=== PATIENT | female | born 1950 | race Caucasian/White ===

== ENCOUNTER 2024-08-13 12:38 | Emergency (ER) | payer MEDICARE, SELFPAY ==
[2024-08-13 12:46] VITALS: BP 141/96; PULSE 80; RESP 19; TEMP 36.7; O2SAT 98; BMI 19.2
--- NOTE | 2024-08-13 13:00 | ED.FALL ---
HPI - Fall <Tawny Huber PA-C - Last Filed: 08/13/24 19:06> General Chief Complaint: Fall Stated Complaint: Head and neck pain Time Seen by Provider: 08/13/24 12:59 Source: patient Mode of arrival: Ambulatory History of Present Illness HPI Narrative: Ms. Montgomery is a pleasant 74-year-old female with a past medical history of myotonic dystrophy, hypercholesterolemia who presents to the emergency department for bilateral headache and neck pain x1 week. Patient reports due to her myotonic dystrophy she has frequent falls. States that she did not have a fall with head trauma that caused her headache but since she does trip and fall frequently she is worried headache could be related to a fall. States that she has a dull pressure-like headache on both sides of the top of her scalp in addition to both sides of the back of her neck which has been coming and going over the last 1 week. Reports that she occasionally takes 1-2 pills of Tylenol a day which has not resolved headache. She does not like to take ibuprofen because it causes nausea. She has not interested an opioid pain medication either. She denies any associated symptoms such as lightheadedness, dizziness, visual disturbance, hearing disturbance, weakness, numbness, tingling, chest pain, shortness of breath, fevers, chills, nausea, vomiting, loss of consciousness. States that she had neck imaging done prior which showed her neck was ?messed up?. Reports about 3-4 months ago she had a fall resulting in left ankle and left arm fracture which are both healing well. She denies any pain elsewhere on her body. The patient's cousin and son are with her and they contribute to the history. Related Data Previous Rx's Medication Instructions Recorded lidocaine 5 % topical patch 1 patch topical DAILY #15 ea 08/13/24 (Lidoderm) methocarbamol 500 mg tablet 500 mg PO TID PRN muscle spasm #14 08/13/24 tabs naproxen 375 mg tablet 375 mg PO BID PRN pain #10 tabs 08/13/24 Allergies Allergy/AdvReac Type Severity Reaction Status Date / Time ibuprofen AdvReac Mild Nausea Verified 08/13/24 12:54 Review of Systems <Tawny Huber PA-C - Last Filed: 08/13/24 19:06> Review of Systems ROS Unobtainable: All systems reviewed & are unremarkable except as noted in HPI and below Patient History <Tawny Huber PA-C - Last Filed: 08/13/24 19:06> Social History Smoking Status: Former smoker Smoking Status: Former smoker Exam <Tawny Huber PA-C - Last Filed: 08/13/24 19:06> Narrative Exam Narrative: GENERAL: 74 year old patient appears stated age. Frail patient, in no acute distress, sitting in chair. HEAD: Atraumatic. Normocephalic. EYES: PERRL. Extraocular motions intact. No scleral icterus. No injection or drainage. ENT: No hemotympanum. Nose without bleeding, purulent drainage. Throat without erythema, tonsillar hypertrophy or exudate. Airway patent. NECK: Trachea midline. Cervical ROM intact. No midline tenderness. Subjective pain with range of motion. CARDIOVASCULAR: Regular rate and rhythm. RESPIRATORY: ?Nonlabored respirations. ?Speaking in clear, full sentences. ?Clear to auscultation. GASTROINTESTINAL: Abdomen soft, non-tender, nondistended. EXTREMITIES: No edema or joint tenderness. Left upper arm prior fracture site/surgical incision scar healed well. BACK: Nontender without deformity or crepitance. No flank tenderness. NEURO: AOx3. ?Clear speech. No facial asymmetry. Ambulates with walker. SKIN: No rash or erythema of visible areas Initial Vital Signs Initial Vital Signs: Vital Signs Temperature 98.0 F 08/13/24 12:46 Pulse Rate 80 08/13/24 12:46 Respiratory Rate 19 08/13/24 12:46 Blood Pressure 141/96 H 08/13/24 12:46 Pulse Oximetry 98 08/13/24 12:46 Oxygen Delivery Method Room Air 08/13/24 12:46 <Fe Mir MD - Last Filed: 09/21/24 18:07> Initial Vital Signs Initial Vital Signs: Vital Signs Temperature 98.0 F 08/13/24 12:46 Pulse Rate 80 08/13/24 12:46 Respiratory Rate 19 08/13/24 12:46 Blood Pressure 141/96 H 08/13/24 12:46 Pulse Oximetry 98 08/13/24 12:46 Oxygen Delivery Method Room Air 08/13/24 12:46 Scores <Tawny Huber PA-C - Last Filed: 08/13/24 19:06> [place] CT Head Rule Age <16 years old: No Patient on blood thinners: No Seizure after injury: No Exclusion: Patient NOT Excluded, Proceed to next steps GCS < 15 at 2 hr post trauma: No Suspected open or depressed skull fracture: No Any sign of basilar skull fracture (hemotympanum, raccoon eyes, Velez's sign, CSF rowena-/rhinorrhea): No Two or more episodes of vomiting: No Age greater or equal to 65 years: Yes Retrograde amnesia to the event greater or equal to 30 min: No Dangerous Mechanism (pedestrian vs. mv, occupant ejected from mv, fall from >3 ft or > 5 stairs): No Recommendation: Consider CT. The [place] Head CT Rule cannot rule out need for Imaging. <Fe Mir MD - Last Filed: 09/21/24 18:07> Russian CT Head Rule Exclusion: Patient NOT Excluded, Proceed to next steps Recommendation: Consider CT. The [place] Head CT Rule cannot rule out need for Imaging. Course <Tawny Huber PA-C - Last Filed: 08/13/24 19:06> Orders Ordered: Discontinued Medications Acetaminophen (Acetaminophen 325 Mg Tablet) 975 mg PO NOW ONE Stop: 08/13/24 13:14 Last Admin: 08/13/24 13:25 Dose: 975 mg Documented By: ASTER Diazepam (Diazepam 2 Mg Tablet) 2 mg PO NOW ONE Stop: 08/13/24 13:14 Last Admin: 08/13/24 13:25 Dose: 2 mg Documented By: ASTER Ketorolac Tromethamine (Ketorolac 30 Mg/Ml Vial) 15 mg IM NOW ONE Stop: 08/13/24 14:46 Last Admin: 08/13/24 14:55 Dose: 15 mg Documented By: ASTER Lidocaine (Lidocaine 5% Patch) 1 each TOP NOW ONE Stop: 08/13/24 13:14 Last Admin: 08/13/24 13:26 Dose: 1 each Documented By: ASTER Vital Signs Vital signs: Vital Signs - 8 hr 08/13/24 12:46 08/13/24 15:22 Temperature 98.0 F Pulse Rate 80 78 Respiratory Rate 19 18 Blood Pressure 141/96 H 142/82 H Pulse Oximetry 98 98 Oxygen Delivery Method Room Air Room Air <Fe Mir MD - Last Filed: 09/21/24 18:07> Orders Ordered: Discontinued Medications Acetaminophen (Acetaminophen 325 Mg Tablet) 975 mg PO NOW ONE Stop: 08/13/24 13:14 Last Admin: 08/13/24 13:25 Dose: 975 mg Documented By: ASTER Diazepam (Diazepam 2 Mg Tablet) 2 mg PO NOW ONE Stop: 08/13/24 13:14 Last Admin: 08/13/24 13:25 Dose: 2 mg Documented By: ASTER Ketorolac Tromethamine (Ketorolac 30 Mg/Ml Vial) 15 mg IM NOW ONE Stop: 08/13/24 14:46 Last Admin: 08/13/24 14:55 Dose: 15 mg Documented By: ASTER Lidocaine (Lidocaine 5% Patch) 1 each TOP NOW ONE Stop: 08/13/24 13:14 Last Admin: 08/13/24 13:26 Dose: 1 each Documented By: ASTER Vital Signs Vital signs: Vital Signs - 8 hr 08/13/24 12:46 08/13/24 15:22 Temperature 98.0 F Pulse Rate 80 78 Respiratory Rate 19 18 Blood Pressure 141/96 H 142/82 H Pulse Oximetry 98 98 Oxygen Delivery Method Room Air Room Air MDM - Fall <Tawny Huber PA-C - Last Filed: 08/13/24 19:06> Imaging Data CT scan - head: Radiologist's Impression: PROCEDURE: CT HEAD/BRAIN WO CON INDICATIONS: BL FOX nck pain x 1 week; hx of freq falls TECHNIQUE: Noncontrast 4.5 mm thick angled axial sections acquired from the foramen magnum to the vertex, with coronal and sagittal reformats. For radiation dose reduction, the following was used: automated exposure control, adjustment of mA and/or kV according to patient size. COMPARISON: None. FINDINGS: Image quality: Diagnostic. CSF spaces: Basal cisterns are patent. No extra-axial fluid collections. The ventricles are symmetric in size and shape. Brain: No intracranial bleeds or masses. There is cerebral volume loss for age, with resultant ventricular and sulcal prominence. There are periventricular and deep white matter chronic small vessel ischemic changes. There is intracranial internal carotid artery atherosclerosis. Skull and face: Calvarium and visualized facial bones appear intact, without suspicious lesions. Sinuses: Visualized sinuses and mastoids are clear. IMPRESSION: No acute intracranial pathology. CT - cervical spine: Radiologist's Impression: PROCEDURE: CT CERVICAL SPINE WO CON INDICATIONS: BL FOX neck pain x 1 week; hx freq falls TECHNIQUE: Noncontrast 3 mm thick sections acquired from the skull base to the T4 level. Sagittal and coronal reformats were then constructed. For radiation dose reduction, the following was used: automated exposure control, adjustment of mA and/or kV according to patient size. COMPARISON: None. FINDINGS: Image quality: Excellent. Bones: No fractures or dislocations. There is dextrocurvature of the cervical spine which may be positional. Minimal degenerative changes are present. Visualized superior ribs are intact. Soft tissues: Prevertebral soft tissues are normal in thickness. No paravertebral hematomas. No apical pneumothoraces. IMPRESSION: No displaced fracture or traumatic subluxation. MDM Narrative Medical decision making narrative: 74-year-old female with a past medical history of myotonic dystrophy, hypercholesterolemia who presents to the emergency department for bilateral headache and neck pain x1 week. Cousin and son contribute to history. No records available for review. On exam patient is in no acute distress, nontoxic appearing, vital signs appropriate. Patient describes bilateral head and neck pain for the last week with a history of frequent falls but no specific fall with head trauma causing the symptoms. No focal neurologic deficits discovered on exam within the limits of patient's myotonic dystrophy. Due to patient age, [address], after shared decision-making with the patient she would like to proceed with imaging of the head and neck and I am agreeable. She is very hesitant to take Tylenol as she reports she usually takes 1 pill at home which does not help however we discussed that this is a very low dose. She did not take any today. We will proceed with Tylenol and a low dose of Valium to help with possible cervical spasms in addition to a topical lidocaine patch. Patient feeling better after ED treatment. Head CT reveals no acute intracranial pathology, report was printed and discussed with the patient and her family including all chronic findings. Cervical spine CT reveals no displaced fracture or traumatic subluxation, there is dextrocurvature of the cervical spine and minimal degenerative changes present. Suspect patient's symptoms are related to cervicogenic headache. She is feeling better after ED treatment. We will also treat with a dose of Toradol. Patient was prescribed naproxen and Lidoderm patches in addition to methocarbamol if needed for cervical muscle spasms, discussed risks of muscle relaxers with the patient and family. Advised patient to follow up early next week with primary care provider, she was provided with a card to establish PCP at [facility]. We discussed strict ER return precautions. Patient verbalized understanding of all information, prescription sent to pharmacy of choice, she is stable for discharge home. Discharge Plan Departure Patient Disposition: Home Clinical Impression: Headache, cervicogenic Instructions: DI for Headache Activity Restrictions/Additional Instructions: Today you were evaluated for headache and neck pain. The findings on your physical exam and your imaging was overall reassuring. We obtained a head CT scan and a cervical spine CT scan. The imaging of your neck revealed some minimal degenerative changes in addition to some abnormal curvature of the neck. I suspect your pain may be related to these chronic neck changes. I have prescribed you an anti-inflammatory pain medication called naproxen to take if needed in addition to a muscle relaxer called methocarbamol. You may also apply lidocaine patch directly to the area on the back of the neck. It is safe to take Tylenol as well. Please do not drink alcohol, operate heavy machinery or drive a car while taking muscle relaxers as this may make you drowsy. You may also take Acetaminophen 650 mg every 4-6 hours for pain or 1000 mg every 8 hours. Do not exceed 3000 mg of Tylenol a day as this can cause liver damage. Do not drink alcohol with either of these medications. Please follow up with your primary care doctor within the next 2-3 days for ER follow-up. (If you do not have a PCP you can call [phone]. ?to schedule an appointment with an [facility] Primary Care Provider) IF YOU DEVELOP ANY NEW OR WORSENING SYMPTOMS, RETURN TO THE ER! Please read the attached instructions, they highlight more specific treatments and interventions for you at home. Thank you for letting me participate in your care, Tawny Huber PA-C Prescriptions: New naproxen 375 mg tablet 375 mg PO BID PRN (Reason: pain) Qty: 10 0RF Rx Instructions: take with food. lidocaine [Lidoderm] 5 % adhesive patch,medicated 1 patch topical DAILY Qty: 15 0RF Rx Instructions: leave on most painful area for up to 12 hrs methocarbamol 500 mg tablet 500 mg PO TID PRN (Reason: muscle spasm) Qty: 14 0RF Stand Alone Forms: Patient Portal/API/Survey
--- NOTE | 2024-08-13 13:13 | DI.CT.S_ITS ---
PROCEDURE: CT HEAD/BRAIN WO CON INDICATIONS: BL FOX nck pain x 1 week; hx of freq falls TECHNIQUE: Noncontrast 4.5 mm thick angled axial sections acquired from the foramen magnum to the vertex, with coronal and sagittal reformats. For radiation dose reduction, the following was used: automated exposure control, adjustment of mA and/or kV according to patient size. COMPARISON: None. FINDINGS: Image quality: Diagnostic. CSF spaces: Basal cisterns are patent. No extra-axial fluid collections. The ventricles are symmetric in size and shape. Brain: No intracranial bleeds or masses. There is cerebral volume loss for age, with resultant ventricular and sulcal prominence. There are periventricular and deep white matter chronic small vessel ischemic changes. There is intracranial internal carotid artery atherosclerosis. Skull and face: Calvarium and visualized facial bones appear intact, without suspicious lesions. Sinuses: Visualized sinuses and mastoids are clear. IMPRESSION: No acute intracranial pathology. Dictated by: Carly Estevez M.D. on 08/13/2024 at 13:11 Approved by: Carly Estevez M.D. on 08/13/2024 at 13:13
--- NOTE | 2024-08-13 13:13 | DI.CT.S_ITS ---
PROCEDURE: CT CERVICAL SPINE WO CON INDICATIONS: BL FOX neck pain x 1 week; hx freq falls TECHNIQUE: Noncontrast 3 mm thick sections acquired from the skull base to the T4 level. Sagittal and coronal reformats were then constructed. For radiation dose reduction, the following was used: automated exposure control, adjustment of mA and/or kV according to patient size. COMPARISON: None. FINDINGS: Image quality: Excellent. Bones: No fractures or dislocations. There is dextrocurvature of the cervical spine which may be positional. Minimal degenerative changes are present. Visualized superior ribs are intact. Soft tissues: Prevertebral soft tissues are normal in thickness. No paravertebral hematomas. No apical pneumothoraces. IMPRESSION: No displaced fracture or traumatic subluxation. Dictated by: Carly Estevez M.D. on 08/13/2024 at 13:13 Approved by: Carly Estevez M.D. on 08/13/2024 at 13:15
[2024-08-13] MEDS: diazePAM 2 MG TABLET PO (13:25)
[2024-08-13] MEDS: ACETAMINOPHEN 325 MG TABLET 975 MG PO (13:25)
[2024-08-13] MEDS: LIDOCAINE 5% PATCH 1 EACH TOP (13:26)
[2024-08-13] MEDS: KETOROLAC 30 MG/ML VIAL 15 MG IM (14:55)
[2024-08-13 15:22] VITALS: BP 142/82; PULSE 78; RESP 18; O2SAT 98
== END 2024-08-13 15:10 | disposition home or self-care (01) ==
PROVIDERS: Emergency Provider Physician Assistant
DX: G44.86 Cervicogenic headache (principal); M54.2 Cervicalgia; R29.6 Repeated falls; G71.11 Myotonic muscular dystrophy
CPT/HCPCS: 70450; 72125; 96372; 99283; 99284; J1885

== ENCOUNTER 2024-12-30 17:50 | Observation (INO) | payer MEDICARE, SELFPAY ==
[2024-12-30] VITALS (13 sets, daily range): BP systolic 136–178; BP diastolic 66–104; PULSE 77–92; RESP 16–40; TEMP 36.9–37.1; O2SAT 88–97; BMI 21.3
--- NOTE | 2024-12-30 18:57 | DI.RAD.S_ITS ---
PROCEDURE: XR CHEST 1V INDICATIONS: chest pain TECHNIQUE: One view of the chest was acquired. COMPARISON: None. FINDINGS: Surgical changes and devices: None. Lungs and pleura: Elevated right hemidiaphragm, which may be chronic. No pleural effusions or pneumothorax. Mediastinum: Mediastinal contours appear normal. Heart size is normal. Bones and chest wall: Left proximal humeral fracture fixation hardware is present. No suspicious bony lesions. Overlying soft tissues appear unremarkable. IMPRESSION: Elevated right hemidiaphragm. No acute cardiopulmonary abnormality is seen. Approved by: Nirmal Fernández M.D. on 12/30/2024 at 19:45
--- NOTE | 2024-12-30 18:57 | EKG_ITS ---
[facility] [address] [place] [address] Test Date: 2024-12-30 Pat Name: Mariel Montgomery Department: [facility] Room: Gender: Female Senior Data Warehouse Architect: MIK : [id number] Requested By: Order Number: [id number] Reading MD: Ephraim Mills Measurements Intervals [place] Rate: 80 P: 12 SC: 212 QRS: -33 QRSD: 116 T: 94 QT: 316 QTc: 364 Interpretive Statements Sinus rhythm with 1st degree AV block Left axis deviation Left ventricular hypertrophy with QRS widening and repolarization abnormality ( R in aVL , Wu product ) Nonspecific ST abnormality Electronically Signed On 12-31-2024 8:43:39 PDT by Ephraim Mills
[2024-12-30] MEDS: ALBUTEROL 2.5 MG/3 ML NEB (ADULT) INH (19:50)
[2024-12-30 20:27] LABS: Influenza A - CEPHEID Flu A NEGATIVE (NEGATIVE); Influenza B - CEPHEID Flu B NEGATIVE (NEGATIVE); Respiratory Syncytial Virus Negative (Negative)
[2024-12-30 20:30] LABS: Add Manual Diff / Slide Review NO; Basophils Absolute Auto 0 /uL (0-100); Basophils Percent Auto 0.3 % (0-2); Eosinophils Absolute Auto 0 /uL (0-450); Eosinophils Percent Auto 0.2 % (2-4); Hematocrit 41.7 % (36-46); Hemoglobin 14.1 g/dL (12.0-16.0); Lymphocytes Absolute Auto 2100 /uL (1100-4500); Lymphocytes Percent Auto 22.2 % (25-40); Mean Corpuscular HGB Conc 33.8 % (30-36); Mean Corpuscular Hemoglobin 33.6 PG (26-34); Mean Corpuscular Volume 99.3 fL (80-100); Monocytes Absolute Auto 500 /uL (0-900); Neutrophils Absolute Auto 7000 /uL (1500-7000); Neutrophils Percent Auto 72.3 % (50-75); Platelet Count 252 X10^3/uL (150-400); Red Cell Distribution Width 14.6 % (11.6-14.8); White Blood Cell Count 9.6 X10^3/uL (4.5-11.0)
[2024-12-30 20:33] LABS: COVID-19 CEPHEID 4-PLEX PCR Negative (Negative)
[2024-12-30 20:43] LABS: Alanine Aminotransferase 88 IU/L (<35); Albumin 4.3 g/dL (3.5-5.0); Albumin Globulin Ratio 1.4 (1.0-2.8); Alkaline Phosphatase 310 U/L (38-126); Aspartate Aminotransferase 85 IU/L (14-36); BUN Creatinine Ratio 15.6 (6-22); Bilirubin Total 0.6 mg/dL (0.2-1.3); Blood Urea Nitrogen 10 mg/dL (7-17); Calcium 9.7 mg/dL (8.4-10.2); Carbon Dioxide 29 mmol/L (22-32); Chloride 97 mmol/L (98-107); Creatine Kinase 63 U/L (30-135); Estimated Glomerular Filt Rate > 60 mL/min (>60); Globulin 3.1 g/dL (1.7-4.1); Glucose 112 mg/dL (70-99); HEMOLYSIS 32 (0-50); Lipase 16 U/L (23-300); Potassium 3.2 mmol/L (3.4-5.1); Sodium 133 mmol/L (137-145); Total Protein 7.4 g/dL (6.3-8.2)
[2024-12-30 20:54] LABS: Troponin I < 0.012 ng/mL (0.01-0.034)
--- NOTE | 2024-12-30 21:07 | ED.URI ---
HPI - URI/Sore Throat General Chief Complaint: Upper Respiratory Symptoms Stated Complaint: sob, pcp ref, cold x 3 days, weakness Time Seen by Provider: 12/30/24 18:57 Source: patient Mode of arrival: Ambulatory History of Present Illness HPI Narrative: 74-year-old female with history of muscular dystrophy, not usually on oxygen, has 2 days duration of cough with increasing shortness of breath. Denies chest pain. Has some generalized weakness, no focal weakness or numbness. Denies abdominal discomfort. No frequency or painful urination. No black or red stools or loose stools. She had recent dental procedure, is taking amoxicillin, has 5 more days of this course. Related Data Home Medications ?Medication ?Instructions ?Recorded ?Confirmed amoxicillin 500 mg capsule 500 mg PO 3XD 12/30/24 12/30/24 chlorhexidine gluconate 0.12 % 15 ml PO BID 12/30/24 12/30/24 mouthwash hydrocodone 5 mg-acetaminophen 325 1 tab PO Q6H PRN pain 12/30/24 12/30/24 mg tablet Previous Rx's ?Medication ?Instructions ?Recorded lidocaine 5 % topical patch 1 patch topical DAILY #15 ea 08/13/24 (Lidoderm) naproxen 375 mg tablet 375 mg PO BID PRN pain #10 tabs 08/13/24 pravastatin 40 mg tablet 40 mg PO ONCE PM #30 tabs 10/31/24 Allergies Allergy/AdvReac Type Severity Reaction Status Date / Time ibuprofen AdvReac Mild Nausea Verified 12/30/24 17:22 Patient History Social History household members: children Smoking Status: Former smoker Smoking Status: Former smoker Exam Narrative Exam Narrative: GENERAL: Well-developed patient, in mild distress. HEAD: Atraumatic. Normocephalic. EYES: Pupils equal round and reactive. Extraocular motions intact. No scleral icterus. No injection or drainage. ENT: Nose without bleeding, purulent drainage. Throat without erythema, tonsillar hypertrophy or exudate. Airway patent. NECK: Trachea midline. Non tender CARDIOVASCULAR: Regular rate and rhythm without murmurs, gallops, or rubs. RESPIRATORY: Crackles bibasilar, with some end expiratory wheezes after DuoNeb by RT. on nasal cannula oxygen. No retractions. Speaks in just short of full sentences. GASTROINTESTINAL: Abdomen soft, non-tender, nondistended. EXTREMITIES: No edema or joint tenderness. BACK: Nontender without deformity or crepitance. No flank tenderness. NEURO: AOx3. Motor functions grossly nonfocal SKIN: No rash or erythema of visible areas Initial Vital Signs Initial Vital Signs: Vital Signs Temperature 98.7 F 12/30/24 18:29 Pulse Rate 92 H 12/30/24 18:29 Respiratory Rate 22 12/30/24 18:29 Blood Pressure 143/68 H 12/30/24 18:29 Pulse Oximetry 88 L 12/30/24 18:29 Oxygen Delivery Method Room Air 12/30/24 18:29 Course Orders Ordered: ED Orders 12/30/24 18:57 XR chest 1V Stat EKG-12 Lead Stat 12/30/24 19:37 Covid-19 + FLU A/B + RSV - PCR Stat 12/30/24 20:15 Complete Blood Count AUTO DIFF Stat Comprehensive Metabolic Panel Stat Lipase Stat Troponin & CK Cardiac Panel Stat 12/30/24 21:20 CT angio chest PE protocol Stat 12/30/24 21:46 Lactate (Lactic Acid) Stat 12/30/24 21:56 BNP [NT-proBNP (BNP-Adult 18+)] Stat Troponin I Stat UA Complete [Urinalysis and Microscopic] Stat 12/31/24 01:23 Blood Culture Stat 01/01/25 06:00 Complete Blood Count AUTO DIFF DAILY Comprehensive Metabolic Panel DAILY Acetaminophen (Acetaminophen 325 Mg Tablet) 650 mg PO Q6H PRN PRN Reason: Fever/Mild Pain (1-3) Albuterol/Ipratropium (Albuterol/Ipratropium 3 Ml Ampul) 3 ml INH RTQ4HR PRN PRN Reason: Shortness Of Breath Heparin Sodium (Porcine) (Heparin 5,000 Unit/Ml Vial) 5,000 unit SUBCUT BID VIVIANE Sodium Chloride (Normal Saline 0.9%) 1,000 mls @ 100 mls/hr IV CONT VIVIANE Last Admin: 12/31/24 02:48 Dose: 100 mls/hr Documented By: EF Piperacillin Sod/Tazobactam (Sod 3.375 gm/ Sodium Chloride) 100 mls @ 25 mls/hr IV Q8H VIVIANE Methylprednisolone (Methylprednisolone 125 Mg/2 Ml Vial) 40 mg IV Q8H VIVIANE Naloxone HCl (Naloxone 0.4 Mg/Ml Vial) 0.2 mg IV Q2MIN PRN PRN Reason: Opiate Reversal Ondansetron HCl (Ondansetron 4 Mg/2 Ml Inj) 4 mg IV Q8HR PRN PRN Reason: Nausea And Vomiting Pantoprazole Sodium (Pantoprazole Dr 20 Mg Tablet) 40 mg PO 0600 VIVIANE Discontinued Medications Albuterol (Albuterol 2.5 Mg/3 Ml Neb (Adult)) 2.5 mg INH NOW ONE Stop: 12/30/24 19:48 Last Admin: 12/30/24 19:50 Dose: 2.5 mg Documented By: MR Albuterol/Ipratropium (Albuterol/Ipratropium 3 Ml Ampul) 3 ml INH NOW ONE Stop: 12/30/24 21:22 Last Admin: 12/30/24 21:28 Dose: 3 ml Documented By: RAFIC Aspirin (Aspirin 81 Mg Chew Tab) 324 mg PO NOW ONE Stop: 12/30/24 18:58 Last Admin: 12/30/24 19:29 Dose: Not Given Documented By: RLC Doxycycline Hyclate (Doxycycline Hyclate 100 Mg Tablet) 100 mg PO NOW ONE Stop: 12/31/24 00:59 Last Admin: 12/31/24 03:17 Dose: 100 mg Documented By: EF Piperacillin Sod/Tazobactam (Sod 4.5 gm/ Sodium Chloride) 100 mls @ 200 mls/hr IV NOW ONE Stop: 12/31/24 00:59 Last Admin: 12/31/24 03:05 Dose: 200 mls/hr Documented By: EF Methylprednisolone (Methylprednisolone 125 Mg/2 Ml Vial) 125 mg IV NOW ONE Stop: 12/30/24 21:22 Last Admin: 12/30/24 21:27 Dose: 125 mg Documented By: RLC Potassium Chloride (Potassium Chloride 20 Meq/15 Ml Udc) 40 meq PO NOW ONE Stop: 12/30/24 21:09 Last Admin: 12/30/24 21:20 Dose: 40 meq Documented By: RLC Vital Signs Vital signs: Vital Signs - 8 hr 12/30/24 19:30 12/30/24 19:53 12/30/24 20:00 Pulse Rate 80 77 80 Respiratory Rate 23 16 35 H Blood Pressure 163/77 H Pulse Oximetry 97 97 94 Oxygen Delivery Method Room Air Oxygen Flow Rate 12/30/24 20:00 12/30/24 20:30 12/30/24 20:30 Pulse Rate 83 Respiratory Rate 31 H Blood Pressure 157/104 H 156/77 H Pulse Oximetry 91 Oxygen Delivery Method Oxygen Flow Rate 12/30/24 21:04 12/30/24 21:06 12/30/24 22:00 Pulse Rate 82 81 80 Respiratory Rate 19 32 H 28 H Blood Pressure Pulse Oximetry 92 91 96 Oxygen Delivery Method Nasal Cannula Oxygen Flow Rate 2 12/30/24 22:06 12/30/24 22:06 12/30/24 22:31 Pulse Rate 82 88 Respiratory Rate 31 H 33 H Blood Pressure 136/66 Pulse Oximetry 95 92 Oxygen Delivery Method Oxygen Flow Rate 12/30/24 23:00 12/30/24 23:00 12/30/24 23:30 Pulse Rate 81 78 Respiratory Rate 36 H 31 H Blood Pressure 145/94 H Pulse Oximetry 89 L 92 Oxygen Delivery Method Room Air Nasal Cannula Oxygen Flow Rate 2 12/30/24 23:30 12/31/24 00:00 12/31/24 00:30 Pulse Rate 76 77 Respiratory Rate 36 H 32 H Blood Pressure 178/83 H Pulse Oximetry 92 92 Oxygen Delivery Method Oxygen Flow Rate 12/31/24 00:32 12/31/24 00:32 12/31/24 01:10 Pulse Rate 75 Respiratory Rate 32 H Blood Pressure 145/75 H Pulse Oximetry 92 93 Oxygen Delivery Method Nasal Cannula Nasal Cannula Oxygen Flow Rate 2 2 MDM - URI/Sore Throat Lab Data Lab results narrative: White blood cell count 9600, hemoglobin 14.1, platelets adequate. Glucose 112. Renal function normal. Sodium 133 low, potassium 3.2 low. Alkaline phosphatase, transaminases mildly elevated, normal T bili. Lipase normal. Lactate normal. COVID flu RSV negative. UA slight contamination not obviously infected. 12/30/24 20:15 12/30/24 20:15 Labs: Lab Results 12/30/24 12/30/24 12/30/24 Range/Units 19:37 20:15 21:46 WBC 9.6 (4.5-11.0) X10^3/uL RBC 4.20 (4.0-5.2) X10^6/uL Hgb 14.1 (12.0-16.0) g/dL Hct 41.7 (36-46) % MCV 99.3 (80-100) fL MCH 33.6 (26-34) PG MCHC 33.8 (30-36) % RDW 14.6 (11.6-14.8) % Plt Count 252 (150-400) X10^3/uL Neut % (Auto) 72.3 (50-75) % Lymph % (Auto) 22.2 L (25-40) % [place] % (Auto) 5.0 (3-14) % Eos % (Auto) 0.2 L (2-4) % Baso % (Auto) 0.3 (0-2) % Neut # (Auto) 7000 (0485-3134) /uL Lymph # (Auto) 2100 (5261-8045) /uL [place] # (Auto) 500 (0-900) /uL Eos # (Auto) 0 (0-450) /uL Baso # (Auto) 0 (0-100) /uL Sodium 133 L (137-145) mmol/L Potassium 3.2 L (3.4-5.1) mmol/L Chloride 97 L (98-107) mmol/L Carbon Dioxide 29 (22-32) mmol/L BUN 10 (7-17) mg/dL Creatinine 0.64 (0.52-1.04) mg/dL Estimated GFR > 60 (>60) mL/min BUN/Creatinine Ratio 15.6 (6-22) Glucose 112 H (70-99) mg/dL Lactate 1.0 (0.7-2.1) mmol/L Calcium 9.7 (8.4-10.2) mg/dL Total Bilirubin 0.6 (0.2-1.3) mg/dL AST 85 H (14-36) IU/L ALT 88 H (<35) IU/L Alkaline Phosphatase 310 H (38-126) U/L Total Creatine Kinase 63 (30-135) U/L Troponin I < 0.012 (0.01-0.034) ng/mL NT-Pro-B Natriuret Pep (<125) pg/mL Total Protein 7.4 (6.3-8.2) g/dL Albumin 4.3 (3.5-5.0) g/dL Globulin 3.1 (1.7-4.1) g/dL Albumin/Globulin Ratio 1.4 (1.0-2.8) Lipase 16 L (23-300) U/L Urine Color Urine Appearance Urine pH (4.5-8.0) Ur Specific [place] (1.000-1.035) Urine Protein (Negative) Urine Glucose (UA) (Negative) g/dL Urine Ketones (NEGATIVE) Urine Occult Blood (Negative) Urine Nitrate (Negative) Urine Bilirubin (NEGATIVE) Urine Urobilinogen (0.2) E.U./dL Ur Leukocyte Esterase (NEGATIVE) Urine RBC (0-5/HPF) Urine WBC (0-5/HPF) Ur Squamous Epith Cells (0-5/HPF) Urine Bacteria (None) Ur Culture Indicated? Vol Urine Centrifuged SARS-CoV-2 (PCR) Negative (Negative) Influenza A (RT-PCR) Flu a negative (NEGATIVE) Influenza B (RT-PCR) Flu b negative (NEGATIVE) RSV (PCR) Negative (Negative) 12/30/24 Range/Units 21:56 WBC (4.5-11.0) X10^3/uL RBC (4.0-5.2) X10^6/uL Hgb (12.0-16.0) g/dL Hct (36-46) % MCV (80-100) fL MCH (26-34) PG MCHC (30-36) % RDW (11.6-14.8) % Plt Count (150-400) X10^3/uL Neut % (Auto) (50-75) % Lymph % (Auto) (25-40) % [place] % (Auto) (3-14) % Eos % (Auto) (2-4) % Baso % (Auto) (0-2) % Neut # (Auto) (2908-9946) /uL Lymph # (Auto) (4233-5990) /uL [place] # (Auto) (0-900) /uL Eos # (Auto) (0-450) /uL Baso # (Auto) (0-100) /uL Sodium (137-145) mmol/L Potassium (3.4-5.1) mmol/L Chloride (98-107) mmol/L Carbon Dioxide (22-32) mmol/L BUN (7-17) mg/dL Creatinine (0.52-1.04) mg/dL Estimated GFR (>60) mL/min BUN/Creatinine Ratio (6-22) Glucose (70-99) mg/dL Lactate (0.7-2.1) mmol/L Calcium (8.4-10.2) mg/dL Total Bilirubin (0.2-1.3) mg/dL AST (14-36) IU/L ALT (<35) IU/L Alkaline Phosphatase (38-126) U/L Total Creatine Kinase (30-135) U/L Troponin I < 0.012 (0.01-0.034) ng/mL NT-Pro-B Natriuret Pep 121 (<125) pg/mL Total Protein (6.3-8.2) g/dL Albumin (3.5-5.0) g/dL Globulin (1.7-4.1) g/dL Albumin/Globulin Ratio (1.0-2.8) Lipase (23-300) U/L Urine Color Yellow Urine Appearance Clear Urine pH 6.0 (4.5-8.0) Ur Specific [place] 1.015 (1.000-1.035) Urine Protein Negative (Negative) Urine Glucose (UA) Negative (Negative) g/dL Urine Ketones Negative (NEGATIVE) Urine Occult Blood Negative (Negative) Urine Nitrate Negative (Negative) Urine Bilirubin Negative (NEGATIVE) Urine Urobilinogen 0.2 (0.2) E.U./dL Ur Leukocyte Esterase Negative (NEGATIVE) Urine RBC None seen (0-5/HPF) Urine WBC 0-1/hpf (0-5/HPF) Ur Squamous Epith Cells 5-10 /hpf H (0-5/HPF) Urine Bacteria None seen (None) Ur Culture Indicated? Cult not indicated Vol Urine Centrifuged 10ml (spun) SARS-CoV-2 (PCR) (Negative) Influenza A (RT-PCR) (NEGATIVE) Influenza B (RT-PCR) (NEGATIVE) RSV (PCR) (Negative) Imaging Data Chest x-ray: Radiologist's Impression: [address] [address] XRay Report Signed Patient: Mariel Montgomery MR#: [id number] : 1950 Acct:[id number] Age/Sex: 74 / F Date of Service: 12/30/24 Loc: ED Accession Number: [id number] Procedure: XR chest 1V Ordering Provider: Wili Rivera MD PROCEDURE: XR CHEST 1V INDICATIONS: chest pain TECHNIQUE: One view of the chest was acquired. COMPARISON: None. FINDINGS: Surgical changes and devices: None. Lungs and pleura: Elevated right hemidiaphragm, which may be chronic. No pleural effusions or pneumothorax. Mediastinum: Mediastinal contours appear normal. Heart size is normal. Bones and chest wall: Left proximal humeral fracture fixation hardware is present. No suspicious bony lesions. Overlying soft tissues appear unremarkable. IMPRESSION: Elevated right hemidiaphragm. No acute cardiopulmonary abnormality is seen. Approved by: Nirmal Fernández M.D. on 12/30/2024 at 19:45 CTA chest: Radiologist's Impression: Close Chest CTA (Signed) Eamon Martinez - 12/30/24 Chest X-Ray (Signed) Nirmal Fernández - 12/30/24 Launch?[place] [id number] CT Scan Report Signed Patient: Mariel Montgomery MR#: [id number] : 1950 Acct:[id number] Age/Sex: 74 / F Date of Service: 12/30/24 Loc: ED Accession Number: [id number] Procedure: CT angio chest PE protocol Ordering Provider: Wili Rivera MD PROCEDURE: CT ANGIO CHEST PE PROTOCOL INDICATIONS: dyspnea, new hypoxia TECHNIQUE: After the administration of intravenous contrast, 2 mm thick sections acquired from the pulmonary apices to the posterior costophrenic angles. 3-dimensional maximum intensity projection (MIP) coronal and sagittal reformats were then acquired through the thorax. For radiation dose reduction, the following was used: automated exposure control, adjustment of mA and/or kV according to patient size. COMPARISON: None. FINDINGS: Image quality: Diagnostic. Pulmonary arteries: Pulmonary arteries are normal in size, and demonstrate no intraluminal filling defects to suggest central pulmonary embolism. Lower Neck: No enlarged lymph nodes. Thyroid: No thyroid nodules which require sonographic follow up, per consensus guidelines. Axillae: No enlarged lymph nodes. Chest Wall: Unremarkable. Bones: Mild T7 compression deformity, with sclerosis of the superior endplate and cortical step-off. Lungs and Pleura: No pneumothorax or pleural effusions. There is mild cylindrical bronchiectasis in the mid to lower lung bilaterally. There are peribronchovascular ground-glass densities and areas of semi solid consolidation in both lower lobes, right middle lobe and lingula. Heart: Heart size is normal. No pericardial effusion. Thoracic Vessels: No aortic aneurysm. Mediastinum and Shikha: No significant adenopathy. There is moderate dilatation of the upper thoracic esophagus containing debris. Esophagus: No wall thickening. No hiatal hernia. Upper Abdomen: Cyst in the right hepatic lobe posteriorly.. IMPRESSION: 1. No signs of pulmonary emboli. 2. There is mild bronchiectasis. Areas of consolidation in the mid to lower lung bilaterally, may represent aspiration or bronchopneumonia. 3. Significant amount of debris in the upper thoracic esophagus, suggesting the possibility of reflux and increased risk for aspiration. 4. Mild T7 compression fracture may be acute to subacute, can be further assessed with MRI as wanted. Dictated by: Eamon Martinez M.D. on 12/30/2024 at 21:46 Approved by: Eamon Martinez M.D. on 12/30/2024 at 21:53 ECG Data Attestation: I personally reviewed and interpreted this ECG as follows: Interpretation: Normal sinus rhythm with rate of 80, no obvious ST segment elevation or depression changes. First-degree AV block with ME 212. QRS 116, QTC 364. MDM Narrative Medical decision making narrative: 74-year-old female with muscular dystrophy, history of atrial fibrillation previously on warfarin, discontinued after successful ablation, not usually on oxygen, recent dental procedure on amoxicillin prophylaxis for 5 more days, has 2 days of new cough and increasing shortness of breath. Crackles and wheeze on exam. Hypoxia is new, on 2 L nasal cannula oxygen. Labs and chest x-ray pending. Poor mobility, consider underlying PE, patient used to be on warfarin, no longer on anticoagulation. EKG without obvious ischemic changes. First-degree AV block noted. Troponin negative. We will repeat interval troponin. Chest x-ray without obvious lobar infiltrate, see radiology report. Initial labs: White blood cell count 9600, hemoglobin 14.1, platelets adequate. Glucose 112. Renal function normal. Sodium 133 low, potassium 3.2 low. Alkaline phosphatase, transaminases mildly elevated, normal T bili. Lipase normal. Lactate normal. COVID flu RSV negative. UA slight contamination not obviously infected. Breathing treatment, still as oxygen requirement, still wheeze, still crackles. CTA chest pending. Repeat troponin negative/unmeasurable. CTA Chest. IMPRESSION: 1. No signs of pulmonary emboli.2. There is mild bronchiectasis. Areas of consolidation in the mid to lower lung bilaterally, may represent aspiration or bronchopneumonia. 3. Significant amount of debris in the upper thoracic esophagus, suggesting the possibility of reflux and increased risk for aspiration. 4. Mild T7 compression fracture may be acute to subacute, can be further assessed with MRI as wanted. See radiology report. Blood cultures, IV Zosyn, oral doxycycline, for aspiration/community-acquired/atypical pneumonia coverage. Consider admission, patient now amenable. Bronchiectatic change and pneumonia consolidation changes, new oxygen requirement, history of muscular dystrophy. Will contact hospitalist. 0110, case discussed with hospitalist Dr. Spangler who accepts patient for admission to inpatient service. Discharge Plan Departure Patient Disposition: Admitted As Inpatient Clinical Impression: Pneumonia, Hypoxia, Bronchiectasis, Muscular dystrophy, Hypokalemia Admit Date/Time: 12/31/24 01:13 Admit Provider: Sai Spangler
[2024-12-30] MEDS: POTASSIUM CHLORIDE 20 MEQ/15 ML UDC 40 MEQ PO (21:20)
--- NOTE | 2024-12-30 21:20 | DI.CT.S_ITS ---
PROCEDURE: CT ANGIO CHEST PE PROTOCOL INDICATIONS: dyspnea, new hypoxia TECHNIQUE: After the administration of intravenous contrast, 2 mm thick sections acquired from the pulmonary apices to the posterior costophrenic angles. 3-dimensional maximum intensity projection (MIP) coronal and sagittal reformats were then acquired through the thorax. For radiation dose reduction, the following was used: automated exposure control, adjustment of mA and/or kV according to patient size. COMPARISON: None. FINDINGS: Image quality: Diagnostic. Pulmonary arteries: Pulmonary arteries are normal in size, and demonstrate no intraluminal filling defects to suggest central pulmonary embolism. Lower Neck: No enlarged lymph nodes. Thyroid: No thyroid nodules which require sonographic follow up, per consensus guidelines. Axillae: No enlarged lymph nodes. Chest Wall: Unremarkable. Bones: Mild T7 compression deformity, with sclerosis of the superior endplate and cortical step-off. Lungs and Pleura: No pneumothorax or pleural effusions. There is mild cylindrical bronchiectasis in the mid to lower lung bilaterally. There are peribronchovascular ground-glass densities and areas of semi solid consolidation in both lower lobes, right middle lobe and lingula. Heart: Heart size is normal. No pericardial effusion. Thoracic Vessels: No aortic aneurysm. Mediastinum and Shikha: No significant adenopathy. There is moderate dilatation of the upper thoracic esophagus containing debris. Esophagus: No wall thickening. No hiatal hernia. Upper Abdomen: Cyst in the right hepatic lobe posteriorly.. IMPRESSION: 1. No signs of pulmonary emboli. 2. There is mild bronchiectasis. Areas of consolidation in the mid to lower lung bilaterally, may represent aspiration or bronchopneumonia. 3. Significant amount of debris in the upper thoracic esophagus, suggesting the possibility of reflux and increased risk for aspiration. 4. Mild T7 compression fracture may be acute to subacute, can be further assessed with MRI as wanted. Dictated by: Eamon Martinez M.D. on 12/30/2024 at 21:46 Approved by: Eamon Martinez M.D. on 12/30/2024 at 21:53
[2024-12-30] MEDS: methylPREDNISolone 125 MG/2 ML VIAL IV (21:27)
[2024-12-30] MEDS: ALBUTEROL/IPRATROPIUM 3 ML AMPUL INH (21:28)
[2024-12-30 22:05] LABS: Appearance Urine UA CLEAR; Bilirubin Urine UA NEGATIVE (NEGATIVE); Color Urine UA YELLOW; Glucose Urine UA NEGATIVE (Negative); Ketones Urine UA NEGATIVE (NEGATIVE); Leukocyte Esterase Urine UA NEGATIVE (NEGATIVE); Nitrite Urine UA NEGATIVE (Negative); Occult Blood Urine UA NEGATIVE (Negative); Protein Urine UA NEGATIVE (Negative); Specific Gravity Urine UA 1.015 (1.000-1.035); Urobilinogen Urine UA 0.2 E.U./dL (0.2)
[2024-12-30 22:13] LABS: Bacteria Urine None Seen; Culture Indicated Urine Cult Not Indicated; RBC Urine None Seen (0-5/HPF); Squamous Epithelial Cell Urine 5-10 /HPF (0-5/HPF); Urine Volume 10mL (spun); WBC Urine 0-1/HPF (0-5/HPF)
[2024-12-30 22:55] LABS: NT-proBNP (BNP-Adult 18+) 121 pg/mL (<125)
[2024-12-30 22:58] LABS: Troponin I < 0.012 ng/mL (0.01-0.034)
[2024-12-31] VITALS: PULSE 76; RESP 36; O2SAT 92
[2024-12-31 00:30] VITALS: PULSE 77; RESP 32; O2SAT 92
[2024-12-31 00:32] VITALS: BP 145/75; PULSE 75; RESP 32; O2SAT 92
[2024-12-31 01:10] VITALS: O2SAT 93
[2024-12-31 01:28] VITALS: BMI 21.3
--- NOTE | 2024-12-31 01:53 | PM.HP.1 ---
History of Present Illness History of Present Illness Chief complaint: sob, pcp ref, cold x 3 days, weakness Narrative: 84-year-old female with past medical history of muscular dystrophy, and hyperlipidemia presents with shortness of breath and coughing. Per the patient report, over the last 2 days, the patient has been having increased productive cough with shortness of breath. The patient also has some fatigue and generalized weakness. The patient however denies any fever, chills, nausea, vomiting, diarrhea, chest pain or syncope. The patient recently had dental procedure and was started on amoxicillin a few days ago. The patient still had 5 days course of amoxicillin to complete. In our emergency room, the patient was hemodynamically stable but did require 2 L of oxygen per nasal cannula. Chest x-ray and CT scan of the chest were done. CT angio of the chest shows no PE but did show signs of mild bronchiectasis and consolidation of the mid to lower lung bilaterally there is concern for aspiration or bronchopneumonia. The patient was started on doxycycline and Zosyn. The patient was also given Solu-Medrol due to increased wheezing and respiratory distress on exam per her ER physician. DuoNebs were also given. [facility] Social History household members: children Smoking Status: Former smoker Meds Home Medications and Allergies Home Medications ?Medication ?Instructions ?Recorded ?Confirmed ?Type lidocaine 5 % topical patch 1 patch topical DAILY #15 ea 08/13/24 12/31/24 Rx (Lidoderm) naproxen 375 mg tablet 375 mg PO BID PRN pain #10 tabs 08/13/24 12/31/24 Rx pravastatin 40 mg tablet 40 mg PO ONCE PM #30 tabs 10/31/24 12/31/24 Rx hydrocodone 5 mg-acetaminophen 325 1 tab PO Q6H PRN pain 12/30/24 12/31/24 History mg tablet Allergies Allergy/AdvReac Type Severity Reaction Status Date / Time ibuprofen AdvReac Mild Nausea Verified 12/31/24 05:29 Review of Systems Review of Systems ROS: Yes All systems reviewed with the patient and are negative except as otherwise documented Exam Vital Signs (past 8 hours): - 12/30/24 18:29 12/30/24 18:45 12/30/24 19:30 Temperature 98.7 F 98.4 F Pulse Rate 92 H 82 80 Respiratory Rate 22 40 H 23 Blood Pressure 143/68 H 160/78 H 163/77 H Pulse Oximetry 88 L 91 97 Oxygen Delivery Method Room Air Nasal Cannula Room Air Oxygen Flow Rate 2 12/30/24 19:53 12/30/24 20:00 12/30/24 20:00 Temperature Pulse Rate 77 80 Respiratory Rate 16 35 H Blood Pressure 157/104 H Pulse Oximetry 97 94 Oxygen Delivery Method Oxygen Flow Rate 12/30/24 20:30 12/30/24 20:30 12/30/24 21:04 Temperature Pulse Rate 83 82 Respiratory Rate 31 H 19 Blood Pressure 156/77 H Pulse Oximetry 91 92 Oxygen Delivery Method Oxygen Flow Rate 12/30/24 21:06 12/30/24 22:00 12/30/24 22:06 Temperature Pulse Rate 81 80 Respiratory Rate 32 H 28 H Blood Pressure 136/66 Pulse Oximetry 91 96 Oxygen Delivery Method Nasal Cannula Oxygen Flow Rate 2 12/30/24 22:06 12/30/24 22:31 12/30/24 23:00 Temperature Pulse Rate 82 88 81 Respiratory Rate 31 H 33 H 36 H Blood Pressure Pulse Oximetry 95 92 89 L Oxygen Delivery Method Room Air Oxygen Flow Rate 12/30/24 23:00 12/30/24 23:30 12/30/24 23:30 Temperature Pulse Rate 78 Respiratory Rate 31 H Blood Pressure 145/94 H 178/83 H Pulse Oximetry 92 Oxygen Delivery Method Nasal Cannula Oxygen Flow Rate 2 12/31/24 00:00 12/31/24 00:30 12/31/24 00:32 Temperature Pulse Rate 76 77 Respiratory Rate 36 H 32 H Blood Pressure 145/75 H Pulse Oximetry 92 92 Oxygen Delivery Method Oxygen Flow Rate 12/31/24 00:32 Temperature Pulse Rate 75 Respiratory Rate 32 H Blood Pressure Pulse Oximetry 92 Oxygen Delivery Method Nasal Cannula Oxygen Flow Rate 2 Oxygen Delivery Method Nasal Cannula Oxygen Flow Rate 2 Narrative Exam Narrative: Physical Exam: GENERAL: The patient is not in any acute distressed. Awake and alert. HEENT: Nonicteric sclerae, PERRLA, EOMI. Oropharynx clear. Moist mucous membranes. Conjunctivae appear well perfused. HEART: Regular rate and rhythm without murmurs. No lower extremities edema. LUNGS: Clear to auscultation bilaterally. No wheezing, crackles or rhonchi ABDOMEN: Soft, positive bowel sounds, nontender. SKIN: No rash, no excessive bruising, petechiae, or purpura. NEUROLOGIC: AxO x 3. Cranial nerves II-XII intact without motor/sensory deficit. Objective Labs 12/30/24 20:15 12/30/24 20:15 Labs: Laboratory Results - last 24 hr 12/30/24 12/30/24 12/30/24 19:37 20:15 21:46 WBC 9.6 RBC 4.20 Hgb 14.1 Hct 41.7 MCV 99.3 MCH 33.6 MCHC 33.8 RDW 14.6 Plt Count 252 Neut % (Auto) 72.3 Lymph % (Auto) 22.2 L [place] % (Auto) 5.0 Eos % (Auto) 0.2 L Baso % (Auto) 0.3 Neut # (Auto) 7000 Lymph # (Auto) 2100 [place] # (Auto) 500 Eos # (Auto) 0 Baso # (Auto) 0 Sodium 133 L Potassium 3.2 L Chloride 97 L Carbon Dioxide 29 BUN 10 Creatinine 0.64 Estimated GFR > 60 BUN/Creatinine Ratio 15.6 Glucose 112 H Lactate 1.0 Calcium 9.7 Total Bilirubin 0.6 AST 85 H ALT 88 H Alkaline Phosphatase 310 H Total Creatine Kinase 63 Troponin I < 0.012 NT-Pro-B Natriuret Pep Total Protein 7.4 Albumin 4.3 Globulin 3.1 Albumin/Globulin Ratio 1.4 Lipase 16 L Urine Color Urine Appearance Urine pH Ur Specific [place] Urine Protein Urine Glucose (UA) Urine Ketones Urine Occult Blood Urine Nitrate Urine Bilirubin Urine Urobilinogen Ur Leukocyte Esterase Urine RBC Urine WBC Ur Squamous Epith Cells Urine Bacteria Ur Culture Indicated? Vol Urine Centrifuged SARS-CoV-2 (PCR) Negative Influenza A (RT-PCR) Flu a negative Influenza B (RT-PCR) Flu b negative RSV (PCR) Negative 12/30/24 21:56 WBC RBC Hgb Hct MCV MCH MCHC RDW Plt Count Neut % (Auto) Lymph % (Auto) [place] % (Auto) Eos % (Auto) Baso % (Auto) Neut # (Auto) Lymph # (Auto) [place] # (Auto) Eos # (Auto) Baso # (Auto) Sodium Potassium Chloride Carbon Dioxide BUN Creatinine Estimated GFR BUN/Creatinine Ratio Glucose Lactate Calcium Total Bilirubin AST ALT Alkaline Phosphatase Total Creatine Kinase Troponin I < 0.012 NT-Pro-B Natriuret Pep 121 Total Protein Albumin Globulin Albumin/Globulin Ratio Lipase Urine Color Yellow Urine Appearance Clear Urine pH 6.0 Ur Specific [place] 1.015 Urine Protein Negative Urine Glucose (UA) Negative Urine Ketones Negative Urine Occult Blood Negative Urine Nitrate Negative Urine Bilirubin Negative Urine Urobilinogen 0.2 Ur Leukocyte Esterase Negative Urine RBC None seen Urine WBC 0-1/hpf Ur Squamous Epith Cells 5-10 /hpf H Urine Bacteria None seen Ur Culture Indicated? Cult not indicated Vol Urine Centrifuged 10ml (spun) SARS-CoV-2 (PCR) Influenza A (RT-PCR) Influenza B (RT-PCR) RSV (PCR) Assessment & Plan Assessment & Plan narrative: Pneumonia. Admit the patient to medical telemetry as inpatient. Concern for aspiration versus bronchopneumonia. Continue empiric Zosyn. NPO. Will need formal swallow eval in the morning. IV fluid. Of note the patient is not septic at this time and hemodynamically stable. Reactive airway disease. Of note patient has no formal diagnosis of asthma or COPD. However on exam patient does have significant wheezing with respiratory distress. Will continue Solu-Medrol, DuoNebs and oxygen. The patient however have muscular dystrophy. Acute respiratory failure with hypoxemia. Mild patient currently on 1 to 2 L of oxygen per nasal cannula. Likely causes above. Continue to treat underlying causes and wean oxygen as able. Muscular dystrophy with generalized weakness. Likely worsening with infection. Treat as above with PT OT. Hyperlipidemia. Resume home statin. DVT prophylaxis heparin subcu. CODE STATUS full code. Disposition likely home in 2 to 3 days - As the provider of this telehealth evaluation, requested by the patient's evaluating physician, I attest that I introduced myself to the patient, provided my credentials and determined that telemedicine via a real-time, 2 way interactive audio and video platform is an appropriate and effective means of providing this service. - I reviewed the patient's chart and had a discussion with the member of the patient's treatment team. - The patient and I mutually agreed with continuation of this evaluation via telemedicine. The patient consented for the telemedicine evaluation. - This virtual encounter was taken place from [place] by Dr. Sai Spangler. The patient was evaluated at [facility]. The encounter was approximately 35 minutes. The nurse was present during the entire time of the encounter and was able to move the stethoscope in appropriate directions. Time-Based Coding :: [TOTAL MINUTES] spent with patient and on the chart (including review of chart, obtaining history, exam, reviewing outside data, placing orders, documenting exam and treatment plan, and counseling patient) on [DATE].
[2024-12-31 01:59] VITALS: BP 135/75; PULSE 82; RESP 17; TEMP 36.4; O2SAT 94
[2024-12-31] MEDS: SODIUM CHLORIDE 0.9% 1,000 ML 100 ML IV (02:48)
[2024-12-31] MEDS: PIPERACILLIN/TAZO 4.5 GM in SODIUM CHLORIDE 0.9% 100 ML IV (03:05)
[2024-12-31] MEDS: DOXYCYCLINE HYCLATE 100 MG TABLET PO (03:17)
--- NOTE | 2024-12-31 03:53 | PC.NURSE ---
Right forearm IV flushed appropriately on arrival to unit from ED. IV infiltrated while NS @100 and zosyn infusing, approximately 30 minutes. Site swollen, pink, nontender. IV removed. Pressure dressing applied. Ice pack to RUE, limb elevated.
--- NOTE | 2024-12-31 06:06 | PC.NURSE ---
Patient placed in wheelchair and sitting at nursing station with staff. Multiple attempts to get out of bed, removing SpO2 probe and tele leads, pulling at IV. Bed alarm on and set off multiple times in a short span. Charge nurse notified pt needs day sitter d/t high risk of fall and pt's inability to follow commands despite multiple attempts on fall education. Pt would like to sign out AMA. Dr. Spangler notified. Awaiting response.
--- NOTE | 2024-12-31 06:13 | PC.NURSE ---
Pt confused, unsure if at baseline or not. Verbal telephone order from Dr. Spangler for for Zyprexa 10mg IM PRN once. See MAR.
--- NOTE | 2024-12-31 07:50 | PM.HP.1 ---
History of Present Illness History of Present Illness Date Patient Seen: 12/31/24 Chief complaint: sob, pcp ref, cold x 3 days, weakness Narrative: From night doctor: 84-year-old female with past medical history of muscular dystrophy, and hyperlipidemia presents with shortness of breath and coughing. Per the patient report, over the last 2 days, the patient has been having increased productive cough with shortness of breath. The patient also has some fatigue and generalized weakness. The patient however denies any fever, chills, nausea, vomiting, diarrhea, chest pain or syncope. The patient recently had dental procedure and was started on amoxicillin a few days ago. The patient still had 5 days course of amoxicillin to complete. In our emergency room, the patient was hemodynamically stable but did require 2 L of oxygen per nasal cannula. Chest x-ray and CT scan of the chest were done. CT angio of the chest shows no PE but did show signs of mild bronchiectasis and consolidation of the mid to lower lung bilaterally there is concern for aspiration or bronchopneumonia. The patient was started on doxycycline and Zosyn. The patient was also given Solu-Medrol due to increased wheezing and respiratory distress on exam per her ER physician. DuoNebs were also given. S: She developed a cough following her entire family develop an URI symptoms. Her cough is primarily nonproductive and was associated with some wheezing. She also took several pain pills because of her pain associated with her cough which may have made her more confused yesterday when the family called the ambulance. Today she was at baseline, this is a test at 2 by multiple family members in the room. She would like to go home, denies any dyspnea and it was comfortable off from oxygen. Imaging reveals no clear infiltrate. She was on amoxicillin prior to arrival. [facility] Social History household members: children Smoking Status: Former smoker Meds Home Medications and Allergies Home Medications ?Medication ?Instructions ?Recorded ?Confirmed ?Type lidocaine 5 % topical patch 1 patch topical DAILY #15 ea 08/13/24 12/31/24 Rx (Lidoderm) naproxen 375 mg tablet 375 mg PO BID PRN pain #10 tabs 08/13/24 12/31/24 Rx pravastatin 40 mg tablet 40 mg PO ONCE PM #30 tabs 10/31/24 12/31/24 Rx hydrocodone 5 mg-acetaminophen 325 1 tab PO Q6H PRN pain 12/30/24 12/31/24 History mg tablet albuterol sulfate 90 mcg/actuation 1 inh inhalation QID #8.5 grams 12/31/24 Rx aerosol inhaler doxycycline hyclate 100 mg capsule 100 mg PO BID #10 caps 12/31/24 Rx Allergies Allergy/AdvReac Type Severity Reaction Status Date / Time ibuprofen AdvReac Mild Nausea Verified 12/31/24 05:29 Review of Systems Review of Systems Narrative: All else reviewed and otherwise unremarkable except as noted in the history and physical. Exam Vital Signs (past 8 hours): - 12/31/24 00:00 12/31/24 00:30 12/31/24 00:32 Temperature Pulse Rate 76 77 Respiratory Rate 36 H 32 H Blood Pressure 145/75 H Pulse Oximetry 92 92 Oxygen Delivery Method Oxygen Flow Rate 12/31/24 00:32 12/31/24 01:10 12/31/24 01:28 Temperature Pulse Rate 75 Respiratory Rate 32 H Blood Pressure Pulse Oximetry 92 93 Oxygen Delivery Method Nasal Cannula Nasal Cannula Nasal Cannula Oxygen Flow Rate 2 2 12/31/24 01:59 Temperature 97.6 F Pulse Rate 82 Respiratory Rate 17 Blood Pressure 135/75 Pulse Oximetry 94 Oxygen Delivery Method Oxygen Flow Rate Oxygen Delivery Method Nasal Cannula Oxygen Flow Rate 2 Narrative Exam Narrative: NAD, alert and oriented, fluent speech, calm. Normocephalic skull, EOMI, anicteric sclera, symmetric pupils. Oropharynx unremarkable, no droop. Neck supple, midline trachea, no adenopathy. Lungs clear, normal rate and effort. Some scattered expiratory wheezing. Heart regular, no murmur gallop or rub. Abdomen is soft, non distended and non tender. Extremities are free of edema. Skin is free of rash or lesions. Joints are not swollen or deformed. Judgment appears to be normal. Objective ECG Impression: Intervals [place] Rate: 80 P: 12 AL: 212 QRS: -33 QRSD: 116 T: 94 QT: 316 QTc: 364 Interpretive Statements Sinus rhythm with 1st degree AV block Left axis deviation Left ventricular hypertrophy with QRS widening and repolarization abnormality ( R in aVL , [place] product ) Nonspecific ST abnormality Imaging Chest x-ray: Radiologist's impression: Elevated right hemidiaphragm. No acute cardiopulmonary abnormality is seen. CT scan - chest: Radiologist's impression: 1. No signs of pulmonary emboli. 2. There is mild bronchiectasis. Areas of consolidation in the mid to lower lung bilaterally, may represent aspiration or bronchopneumonia. 3. Significant amount of debris in the upper thoracic esophagus, suggesting the possibility of reflux and increased risk for aspiration. 4. Mild T7 compression fracture may be acute to subacute, can be further assessed with MRI as wanted. Labs 12/30/24 20:15 12/30/24 20:15 Labs: Laboratory Results - last 24 hr 12/30/24 12/30/24 12/30/24 19:37 20:15 21:46 WBC 9.6 RBC 4.20 Hgb 14.1 Hct 41.7 MCV 99.3 MCH 33.6 MCHC 33.8 RDW 14.6 Plt Count 252 Neut % (Auto) 72.3 Lymph % (Auto) 22.2 L [place] % (Auto) 5.0 Eos % (Auto) 0.2 L Baso % (Auto) 0.3 Neut # (Auto) 7000 Lymph # (Auto) 2100 [place] # (Auto) 500 Eos # (Auto) 0 Baso # (Auto) 0 Sodium 133 L Potassium 3.2 L Chloride 97 L Carbon Dioxide 29 BUN 10 Creatinine 0.64 Estimated GFR > 60 BUN/Creatinine Ratio 15.6 Glucose 112 H Lactate 1.0 Calcium 9.7 Total Bilirubin 0.6 AST 85 H ALT 88 H Alkaline Phosphatase 310 H Total Creatine Kinase 63 Troponin I < 0.012 NT-Pro-B Natriuret Pep Total Protein 7.4 Albumin 4.3 Globulin 3.1 Albumin/Globulin Ratio 1.4 Lipase 16 L Urine Color Urine Appearance Urine pH Ur Specific [place] Urine Protein Urine Glucose (UA) Urine Ketones Urine Occult Blood Urine Nitrate Urine Bilirubin Urine Urobilinogen Ur Leukocyte Esterase Urine RBC Urine WBC Ur Squamous Epith Cells Urine Bacteria Ur Culture Indicated? Vol Urine Centrifuged SARS-CoV-2 (PCR) Negative Influenza A (RT-PCR) Flu a negative Influenza B (RT-PCR) Flu b negative RSV (PCR) Negative 12/30/24 21:56 WBC RBC Hgb Hct MCV MCH MCHC RDW Plt Count Neut % (Auto) Lymph % (Auto) [place] % (Auto) Eos % (Auto) Baso % (Auto) Neut # (Auto) Lymph # (Auto) [place] # (Auto) Eos # (Auto) Baso # (Auto) Sodium Potassium Chloride Carbon Dioxide BUN Creatinine Estimated GFR BUN/Creatinine Ratio Glucose Lactate Calcium Total Bilirubin AST ALT Alkaline Phosphatase Total Creatine Kinase Troponin I < 0.012 NT-Pro-B Natriuret Pep 121 Total Protein Albumin Globulin Albumin/Globulin Ratio Lipase Urine Color Yellow Urine Appearance Clear Urine pH 6.0 Ur Specific [place] 1.015 Urine Protein Negative Urine Glucose (UA) Negative Urine Ketones Negative Urine Occult Blood Negative Urine Nitrate Negative Urine Bilirubin Negative Urine Urobilinogen 0.2 Ur Leukocyte Esterase Negative Urine RBC None seen Urine WBC 0-1/hpf Ur Squamous Epith Cells 5-10 /hpf H Urine Bacteria None seen Ur Culture Indicated? Cult not indicated Vol Urine Centrifuged 10ml (spun) SARS-CoV-2 (PCR) Influenza A (RT-PCR) Influenza B (RT-PCR) RSV (PCR) Assessment & Plan Assessment & Plan narrative: 1. Pneumonia. Admit the patient to medical telemetry as inpatient. Concern for aspiration versus bronchopneumonia. Continue empiric Zosyn. NPO. Will need formal swallow eval in the morning. IV fluid. Of note the patient is not septic at this time and hemodynamically stable. 2. Reactive airway disease. Of note patient has no formal diagnosis of asthma or COPD. However on exam patient does have significant wheezing with respiratory distress. Will continue Solu-Medrol, DuoNebs and oxygen. The patient however have muscular dystrophy. 3. Acute respiratory failure with hypoxemia. Mild patient currently on 1 to 2 L of oxygen per nasal cannula. Likely causes above. Continue to treat underlying causes and wean oxygen as able. 4. Muscular dystrophy with generalized weakness. Likely worsening with infection. Treat as above with PT OT. 5. Hyperlipidemia. Resume home statin. DVT prophylaxis heparin subcu. CODE STATUS full code. Disposition likely home in 2 to 3 days Time-Based Coding :: 35 min spent with patient and on the chart (including review of chart, obtaining history, exam, reviewing outside data, placing orders, documenting exam and treatment plan, and counseling patient) on 12/31. Quality VTE Deep Vein Thrombosis/Pulmonary Embolism Present on Admission: No MIPS - Admit I confirm the patient?s Advance Care Plan is present, Code status is documented, Surrogate decision maker is in patient?s record [If Yes, STOP here]: Yes MIPS - Meds 'Current medications' to include all prescriptions, [id number] products, herbals, cannabis/cannabidiol products, and vitamin/mineral/dietary (nutritional) supplements. I have utilized all available resources to obtain, update, or review the patient?s current medications. [If Yes, STOP here]: Yes
[2024-12-31 09:00] VITALS: BP 129/106; PULSE 73; RESP 16; TEMP 36.2; O2SAT 91
[2024-12-31] MEDS: methylPREDNISolone 125 MG/2 ML VIAL 40 MG IV (09:11)
[2024-12-31] MEDS: HEPARIN 5,000 UNIT/ML VIAL 5000 UNIT SUBCUT (09:12)
[2024-12-31] MEDS: PIPERACILLIN/TAZO 3.375 GM in SODIUM CHLORIDE 0.9% 100 ML IV (09:13)
--- NOTE | 2024-12-31 10:28 | P.DS_ITS ---
History of Present Illness History of Present Illness Chief complaint: sob, pcp ref, cold x 3 days, weakness Narrative: From night doctor: 84-year-old female with past medical history of muscular dystrophy, and hyperlipidemia presents with shortness of breath and coughing. Per the patient report, over the last 2 days, the patient has been having increased productive cough with shortness of breath. The patient also has some fatigue and generalized weakness. The patient however denies any fever, chills, nausea, vomiting, diarrhea, chest pain or syncope. The patient recently had dental procedure and was started on amoxicillin a few days ago. The patient still had 5 days course of amoxicillin to complete. In our emergency room, the patient was hemodynamically stable but did require 2 L of oxygen per nasal cannula. Chest x-ray and CT scan of the chest were done. CT angio of the chest shows no PE but did show signs of mild bronchiectasis and consolidation of the mid to lower lung bilaterally there is concern for aspiration or bronchopneumonia. The patient was started on doxycycline and Zosyn. The patient was also given Solu-Medrol due to increased wheezing and respiratory distress on exam per her ER physician. DuoNebs were also given. S: She developed a cough following her entire family develop an URI symptoms. Her cough is primarily nonproductive and was associated with some wheezing. She also took several pain pills because of her pain associated with her cough which may have made her more confused yesterday when the family called the ambulance. Today she was at baseline, this is a test at 2 by multiple family members in the room. She would like to go home, denies any dyspnea and it was comfortable off from oxygen. Imaging reveals no clear infiltrate. She was on amoxicillin prior to arrival. Discharge Providers Provider Date of admission: 12/31/24 01:13 Discharge Date: 12/31/24 Primary care physician: Doctor Katherine MD Consults: None. Discharge provider: Ephraim Mills MD Summary Hospital Course Discharge Diagnosis: 1. Pneumonia. Active. 2. Reactive airway disease (H/) smoking). Improved. 3. Acute respiratory failure with hypoxemia. Resolved. 4. Muscular dystrophy with generalized weakness. Active and stable. . 5. Hyperlipidemia. Active and stable. . Hospital Course: She was admitted and treated with antibiotics, oxygen and bronchodilators. She was able to wean off from oxygen and was doing quite well when I saw her in the morning. She did want to discharge and her family felt that she was likely stable for discharge if I agreed. I reviewed imaging and labs and thought she would do well at home. She will go home with oral doxycycline for an additional 5 days as well as an albuterol inhaler with a spacer. Status at Discharge Cognitive/behavioral status at discharge: oriented Functional status at discharge: independent ambulation Overall status at discharge: patient is progressing back to baseline Time Spent with Patient Time spent: Greater than 30 minutes Exam Vital Signs (past 8 hours): - 12/31/24 07:00 12/31/24 09:00 Temperature 97.1 F L Pulse Rate 73 Respiratory Rate 16 Blood Pressure 129/106 H Pulse Oximetry 91 Oxygen Delivery Method Room Air Oxygen Delivery Method Room Air Oxygen Flow Rate 2 Narrative Exam Narrative: NAD, alert and oriented, fluent speech, calm. Normocephalic skull, EOMI, anicteric sclera, symmetric pupils. Oropharynx unremarkable, no droop. Neck supple, midline trachea, no adenopathy. Lungs clear, normal rate and effort. Some scattered expiratory wheezing. Heart regular, no murmur gallop or rub. Abdomen is soft, non distended and non tender. Extremities are free of edema. Objective ECG Impression: Impression: Intervals [place] Rate: 80 P: 12 NE: 212 QRS: -33 QRSD: 116 T: 94 QT: 316 QTc: 364 Interpretive Statements Sinus rhythm with 1st degree AV block Left axis deviation Left ventricular hypertrophy with QRS widening and repolarization abnormality ( R in aVL , Wu product ) Nonspecific ST abnormality Imaging Multiple studies: : Radiologist's impression: Chest x-ray: Radiologist's impression: Elevated right hemidiaphragm. No acute cardiopulmonary abnormality is seen. CT scan - chest: Radiologist's impression: 1. No signs of pulmonary emboli. 2. There is mild bronchiectasis. Areas of consolidation in the mid to lower lung bilaterally, may represent aspiration or bronchopneumonia. 3. Significant amount of debris in the upper thoracic esophagus, suggesting the possibility of reflux and increased risk for aspiration. 4. Mild T7 compression fracture may be acute to subacute, can be further assessed with MRI as wanted. Labs 12/30/24 20:15 12/30/24 20:15 Labs: Laboratory Results - last 24 hr 12/30/24 12/30/24 12/30/24 19:37 20:15 21:46 WBC 9.6 RBC 4.20 Hgb 14.1 Hct 41.7 MCV 99.3 MCH 33.6 MCHC 33.8 RDW 14.6 Plt Count 252 Neut % (Auto) 72.3 Lymph % (Auto) 22.2 L [place] % (Auto) 5.0 Eos % (Auto) 0.2 L Baso % (Auto) 0.3 Neut # (Auto) 7000 Lymph # (Auto) 2100 [place] # (Auto) 500 Eos # (Auto) 0 Baso # (Auto) 0 Sodium 133 L Potassium 3.2 L Chloride 97 L Carbon Dioxide 29 BUN 10 Creatinine 0.64 Estimated GFR > 60 BUN/Creatinine Ratio 15.6 Glucose 112 H Lactate 1.0 Calcium 9.7 Total Bilirubin 0.6 AST 85 H ALT 88 H Alkaline Phosphatase 310 H Total Creatine Kinase 63 Troponin I < 0.012 NT-Pro-B Natriuret Pep Total Protein 7.4 Albumin 4.3 Globulin 3.1 Albumin/Globulin Ratio 1.4 Lipase 16 L Urine Color Urine Appearance Urine pH Ur Specific [place] Urine Protein Urine Glucose (UA) Urine Ketones Urine Occult Blood Urine Nitrate Urine Bilirubin Urine Urobilinogen Ur Leukocyte Esterase Urine RBC Urine WBC Ur Squamous Epith Cells Urine Bacteria Ur Culture Indicated? Vol Urine Centrifuged SARS-CoV-2 (PCR) Negative Influenza A (RT-PCR) Flu a negative Influenza B (RT-PCR) Flu b negative RSV (PCR) Negative 12/30/24 21:56 WBC RBC Hgb Hct MCV MCH MCHC RDW Plt Count Neut % (Auto) Lymph % (Auto) [place] % (Auto) Eos % (Auto) Baso % (Auto) Neut # (Auto) Lymph # (Auto) [place] # (Auto) Eos # (Auto) Baso # (Auto) Sodium Potassium Chloride Carbon Dioxide BUN Creatinine Estimated GFR BUN/Creatinine Ratio Glucose Lactate Calcium Total Bilirubin AST ALT Alkaline Phosphatase Total Creatine Kinase Troponin I < 0.012 NT-Pro-B Natriuret Pep 121 Total Protein Albumin Globulin Albumin/Globulin Ratio Lipase Urine Color Yellow Urine Appearance Clear Urine pH 6.0 Ur Specific [place] 1.015 Urine Protein Negative Urine Glucose (UA) Negative Urine Ketones Negative Urine Occult Blood Negative Urine Nitrate Negative Urine Bilirubin Negative Urine Urobilinogen 0.2 Ur Leukocyte Esterase Negative Urine RBC None seen Urine WBC 0-1/hpf Ur Squamous Epith Cells 5-10 /hpf H Urine Bacteria None seen Ur Culture Indicated? Cult not indicated Vol Urine Centrifuged 10ml (spun) SARS-CoV-2 (PCR) Influenza A (RT-PCR) Influenza B (RT-PCR) RSV (PCR) [facility] Social History household members: children Smoking Status: Former smoker Discharge Assessment & Plan Assessment and Plan Assessment: 1. Pneumonia. Active. 2. Reactive airway disease (H/) smoking). Improved. 3. Acute respiratory failure with hypoxemia. Resolved. Plan of Treatment: Discharge with doxycycline 100 b.i.d. 5 day course, albuterol MDI with a spacer. They will follow up for increased shortness breath, fevers, or dyspnea. Discharge Plan Discharge Plan Patient Disposition: Home Provider Discharge Comment: Stable for discharge with oral antibiotics. Discharge orders & Medications Prescriptions: New doxycycline hyclate 100 mg capsule 100 mg PO BID Qty: 10 0RF albuterol sulfate 90 mcg/actuation HFA aerosol inhaler 1 inh inhalation QID Qty: 8.5 0RF Rx Instructions: With spacer. Continued hydrocodone-acetaminophen 5-325 mg tablet 1 tab PO Q6H PRN (Reason: pain) pravastatin 40 mg tablet 40 mg PO ONCE PM Qty: 30 3RF naproxen 375 mg tablet 375 mg PO BID PRN (Reason: pain) Qty: 10 0RF Rx Instructions: take with food. lidocaine [Lidoderm] 5 % adhesive patch,medicated 1 patch topical DAILY Qty: 15 0RF Rx Instructions: leave on most painful area for up to 12 hrs Follow up/Referrals: Doctor Murphy MD [Primary Care Provider, Medical] Discharge Health Status Multidrug resistant organism: No MDRO Diet/Activity/Treatments Diet: Regular Skin/Wound/Dressing Care Report to your healthcare provider any signs of infection, such as:: chills, fever Visit Report/Discharge Packet Instructions: DI for Pneumonia -- Adult Stand Alone Forms: Patient Portal/API Discharge Data Primary Care Provider: Doctor Katherine Quality VTE Deep Vein Thrombosis/Pulmonary Embolism Present on Admission: No
--- NOTE | 2024-12-31 10:29 | CM.DANOTE ---
Initial DCP Assessment Note Pt is a 74 yo female, resident of [facility] muscular dystrophy, admitted for management of PNA. PCP: Dr Tse, Medicine Payer: Alex JARAMILLO Reviewed chart, pt discussed in multidisciplinary rounds this morning. Patient is eager to discharge home today with family. Cousin Mina and her Kelechi at bedside, as is patient's son Yovanny (who also has muscular dystrophy). Cousin Mina assists with care and decision making, no formal DPOA designation. Patient sleeping soundly this visit. Family denies need from this SW team. Patient is Mod indp, family assists with higher ADLs as needed, family helps with transportation. No barriers identified at this time to patient's safe discharge home w/family to assist; close outpatient f/u recommended. ROSALBA Gomez Discharge Planning/Care Management CM Discharge Assessment Start: 12/31/24 01:28 Freq: Status: Active Protocol: Document 12/31/24 10:10 DORIAN (Rec: 12/31/24 10:28 DORIAN [id number]) Discharge Planning Assessment Assigned Discharge ROSALBA Gorman Scientific Linguist DPOA/Assigned Nola Goldstein Cell Phone Designee Name Contact Information Mina Vincent Cell Phone Advance Directives? No History Provided By Patient,Medical Record Prior Living Apartment/Condo Arrangements Household Members children Type of Relies on Others transporation used prior to admit Independent with ADL Yes 's Is patient alert and Yes oriented? Needs Assistance Home Chores / Shopping With Comment Home w/family to assist Barriers to No Discharge Discharge Plan Home Transportation Family Arrangement
--- NOTE | 2024-12-31 12:39 | PC.NURSE ---
Pt discharged with family in wheel chair and personal car. Discharge instructions reviewed and all questions answered.
== END 2024-12-31 12:00 | disposition home or self-care (01) ==
LOC: ED 20:08 → AC 12-31 01:15
PROVIDERS: Admitting Provider Internal Medicine; Emergency Provider Emergency Medicine; Referring Provider Emergency Medicine; Visit Provider Internal Medicine
DX: J18.9 Pneumonia, unspecified organism (principal); J96.01 Acute respiratory failure with hypoxia; G71.00 Muscular dystrophy, unspecified; J45.909 Unspecified asthma, uncomplicated; E78.5 Hyperlipidemia, unspecified; R53.1 Weakness; Z87.891 Personal history of nicotine dependence; Z11.52 Encounter for screening for COVID-19
CPT/HCPCS: 0241U; 36415; 71045; 71275; 80053; 81001; 82550; 83605; 83690; 83880; 84484; 85025; 87040; 93005; 94640; 96365; 96372; 96375; 96376; 99285; G0378; J1644; J2543; J2919; J7613; Q9967

== ENCOUNTER → 2025-01-30 14:16 | Outpatient (CLI) | payer MEDICARE, SELFPAY ==
[2024-12-31 01:28] VITALS: BMI 21.3
== END ==
PROVIDERS: Referring Provider Psychiatry & Neurology Neuromuscular Medicine; Visit Provider Psychiatry & Neurology Neuromuscular Medicine
DX: G71.11 Myotonic muscular dystrophy (principal); Z87.891 Personal history of nicotine dependence; R94.2 Abnormal results of pulmonary function studies
CPT/HCPCS: 94010; 94070

== ENCOUNTER 2025-02-09 15:56 | Outpatient (RCR) | payer MEDICARE, SELFPAY ==
--- NOTE | 2025-02-09 17:58 | ST.OPIE ---
Visit Care Team Role Provider Type Doctor MD Katherine Family Provider Non-Staff Primary Care Provider Specialty: Medical Address: Phone: Fax: Email: Param Doll MD Attending Provider Non-Staff Referring Provider Specialty: Psychiatry Address: [address] [place] [address], [id number] Fax: Email: Speech-Language Pathology Initial Evaluation LEAD SOFTWARE QA ENGINEER Clinical Swallow Evaluation Start: 02/09/25 17:26 Freq: Status: Active Protocol: Document 02/09/25 17:27 SS (Rec: 02/09/25 17:57 SS Desktop) Clinical Swallow Evaluation Session Time Visit Start Time 16:15 Visit Stop Time 16:55 Total Visit Minutes 40 Visit Information Visit Number 1 Plan of Care Dates 02/09/25-05/12/25 Insurance [employer] Medicare (copay, no pre-auth, no visit limit) Information Referral Referring Provider Dr. 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 She reports that she began to notice swallowing symptoms at least 4-5 years ago. She has not noticed a change in the severity/frequency of her symptoms. Pt had seen an LEAD SOFTWARE QA ENGINEER ?years ago? and explained that it was recommended that she utilize a left head turn and chin tuck with all PO intake. She has not completed an MBSS in the past. PMHx includes hyperlipidemia. Pt was previously hospitalized at [facility] for pneumonia and acute respiratory failure with hypoxemia 12/30/24-. Per discharge report, ?chest x-ray and CT scan of the chest were done . CT angio of the chest shows no PE but did show signs of mild bronchiectasis and consolidation of the mid to lower lung bilaterally there is concern for aspiration or bronchopneumonia.? Pt denied unintentional weight loss, GERD, or other esophageal symptoms. She reported coughing and choking with solids, such as breads and meats, as well as increased effort with mastication. Pt expressed her main goal for treatment is ?to improve my swallowing?. Subjective Pt arrived to the session on time. She was accompanied Observations by her cousin, who waited for her in the waiting room. She was motivated to participate and provided his case history. Her speech was verbose and often tangential. Reported by Patient/Caregiver Other Symptoms Choking,Coughing,Difficulty swallowing pills,Difficulty swallowing solids,History of aspiration or pneumonia Comment Coughing and choking with solids and large pills only. Denied difficulty with liquids. Current Diet Regular (IDDSI 7) Baseline Feeding Independent in self-feeding Method Type of Patient The pt scored a 7/40, indicating the need for further Questionnaire (e.g., assessment. EAT-10, MDADI, etc. ) Results BASELINE LEVEL OF FUNCTION Solids: Regular Liquids: Thin Medications: Whole with liquid wash Functional Oral Intake Scale (FOIS): FOIS level 6 FOIS [place]: Level 1 = no oral intake, Level 2 = tube dependent with minimal/inconsistent oral intake, Level 3 = tube supplements with consistent oral intake, Level 4 = total oral intake of a single consistency, Level 5 = total oral intake of multiple consistencies requiring special preparation, Level 6 = total oral intake with no special preparation, but must avoid specific foods or liquid items, Level 7 = total oral intake with no restrictions The IDDSI Framework Protocol: IDDSI.1 Objective Assessment Mental Status Alert,Responsive,Cooperative Oral Integrity WFL Dentition Within normal limits,Missing teeth Lip Function Within normal limits Tongue Function Within normal limits Jaw Function Within normal limits Hard/Soft Palate Within normal limits Function Observations of Hard Within normal limits /Soft Palate Respiratory Within normal limits Sufficiency Comment CRANIAL NERVE EXAM CN V (Trigeminal): intact b/l CN VII (Facial): intact b/l CN IX/X (Glossopharyngeal/Vagus): intact b/l CN XII (Hypoglossal): intact b/l Pt?s oral health is good. Pt has own dentition with dental work noted. The pt reports brushing her teeth 2x daily. Oral health status is one of the three pillars of aspiration pneumonia, with research showing that poor oral health increases the risk of pulmonary compromise associated with aspiration. Food and Liquid Trials Position During Upright (90 degrees) Assessment Liquids Trialed Thin (IDDSI 0) Solid Trials Purred (IDDSI 4),Soft & Bite-sized (IDDSI 6),Regular ( IDDSI 7) Administration Type Tea spoon,Cup single sip,Cup consecutive sips,Self- feeding Oral Impairment Mildly impaired Oral Phase Comments Oral acceptance and containment was adequate. Mastication appeared to be organized and timely. Pt presented with moderate amounts of oral residue following oral trials, which she cleared independently with liquid wash. Pharyngeal Moderately impaired Impairment Pharyngeal Phase No overt s/sx of aspiration noted with single sips of Comments thin liquids. However, wet vocal quality and coughing noted following sequential sips of thin liquid via cup and straw. No overt s/x of aspiration noted with solids . However, pt insisted on taking a sips of liquids after every bite of solids, coughing immediately. It was very difficult to distinguish whether pt was coughing and demonstrating wet vocal quality following trials of solids or due to liquid wash that she was utilizing. She denied feeling of sticking in her throat , which may be indicative of pharyngeal residue, but continued to utilize liquid wash after every bite. Fatigue/Endurance Endurance WNL The IDDSI Framework Protocol: IDDSI.1 Findings Swallowing Function Oropharyngeal phase dysphagia Severity of Swallow Moderately impaired Impairment Contributing Factors Reduced alertness or attention,Mastication inefficiency to Swallow ,Impaired airway protection,Excessive pharyngeal Impairment residue Prognosis Fair Based on Cognitive status,Family support,History of aspiration/ aspiration pneumonia,Comorbidities Comment Pt presents with signs and symptoms of oropharyngeal dysphagia, likely related to the pt's dx of myotonic muscular dystrophy complicated by impulsiveness with intake. Based on pt?s good oral health status, overall immune function, and history of PNA, pt currently remains at a moderate risk of pulmonary compromise associated with aspiration at this time. However, as her disease progresses, this risk factor may increase. Pt does not appear to be at risk for malnutrition/ dehydration and diet modification is not indicated until pt completes MBSS. Recommend pt continue eating regular diet (self-selecting softer items) and utilize single sips of thin liquids to maintain nutrition and hydration. Recommend pt avoid alternating liquids and solids as this may increase her risk of aspirating solids, as she appears to demonstrate more overt s/sx of aspiration with liquids. Modified Barium Swallow Study (MBSS) is indicated to thoroughly assess pt?s swallow pathophysiology in order to determine the safest diet, effective compensatory strategies, and potential rehabilitative exercises for therapy. The plan is for the pt to complete a modified barium swallow study to further assess swallowing pathophysiology in order to determine treatment plan. Further goals will be established based on MBSS results . Pt agreeable to plan. Handout provided for increase recall of information. LEAD SOFTWARE QA ENGINEER to contact PCP re: order. Impact on Safety and Risk for aspiration Functioning Recommendations Instrumental Yes Assessment Swallowing Treatment Yes Frequency 1x/week Duration 3 months (pending MBSS results) Recommended Solids Regular (IDDSI 7) Recommended Liquids Thin (IDDSI 0) Safety Precautions/ Reduce distractions,Remain upright (90 degrees) during Swallowing all oral intake,Needs verbal cues to use recommended Recommendations strategies,Upright position at least 30 minutes after meals,Small bites and sips when eating,Slow rate; swallow between bites,Multiple swallows Medication As Tolerated Recommendations Education Patient/Caregiver Described results of evaluation,Patient expressed Education understanding of evaluation,Patient expressed agreement with goals & treatment plans Goals Short-term Goals 1. Patient will complete MBSS to further evaluate swallowing pathophysiology and determine next steps in POC. Long-term Goals 1. Patient will safely tolerate least restrictive diet consistency to allow for safe consumption of daily meals without s/sx of aspiration or penetration.
--- NOTE | 2025-02-09 17:58 | ST.OPPOC ---
Physical, Occupational & Speech Therapy At [facility] Visit Care Team Role Provider Type Doctor Katherine MD Family Provider Non-Staff Primary Care Provider Address: Phone: Fax: Param Doll MD Attending Provider Non-Staff Referring Provider Address: [address] [place], [address] Fax: Speech Pathology Plan of Care Plan of Care Dates 02/09/25-05/12/[address] 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 She reports that she began to notice swallowing symptoms at least 4-5 years ago. She has not noticed a change in the severity/frequency of her symptoms. Pt had seen an INFORMATION SYSTEMS ANALYST ?years ago? and explained that it was recommended that she utilize a left head turn and chin tuck with all PO intake. She has not completed an MBSS in the past. PMHx includes hyperlipidemia. Pt was previously hospitalized at [facility] for pneumonia and acute respiratory failure with hypoxemia 12/30/24-. Per discharge report, ? chest x-ray and CT scan of the chest were done. CT angio of the chest shows no PE but did show signs of mild bronchiectasis and consolidation of the mid to lower lung bilaterally there is concern for aspiration or bronchopneumonia.? Pt denied unintentional weight loss, GERD, or other esophageal symptoms. She reported coughing and choking with solids, such as breads and meats, as well as increased effort with mastication. Pt expressed her main goal for treatment is ?to improve my swallowing?. Short-term Goals 1. Patient will complete MBSS to further evaluate swallowing pathophysiology and determine next steps in POC. Long-term Goals 1. Patient will safely tolerate least restrictive diet consistency to allow for safe consumption of daily meals without s/sx of aspiration or penetration. Comment: Electronically Signed by: HUSSEIN Welch 02/09/25 [id number] If you are in agreement with this Plan of Care, please return a signed and dated copy. I have reviewed this Plan of Care and certify that the skilled therapy services above are required to meet the patient?s needs. Physician Signature Date Printed Name and Credentials Clinical Instructor Signature Printed Name and Credentials
--- NOTE | 2025-02-09 18:03 | ST-OP ANOTE ---
Physical, Occupational & Speech Therapy At [facility] Speech Therapy Note LEVELER sent POC to referring provider, Dr. Param Doll (neurology) requesting signature if in agreement. Additionally requested order for MBSS to further inform POC. Asked pt to provide name of PCP, which is not currently in the system. Pt agreeable and will provide information to assistant front end manager. LEVELER to follow up as needed.
--- NOTE | 2025-02-14 11:57 | ST-OP ANOTE ---
Physical, Occupational & Speech Therapy At [facility] Speech Therapy Note SONG WRITER spoke to pt's medical team at [facility]. Message sent by team to Dr. Param Doll (referring provider) requesting order for Modified Barium Swallow Study with preferred location at [facility]. SONG WRITER to continue to follow up.
--- NOTE | 2025-07-25 11:04 | ST.OPDS ---
Visit Care Team Role Provider Type Doctor MD Katherine Family Provider Non-Staff Primary Care Provider Address: Phone: Fax: Param Doll MD Attending Provider Non-Staff Referring Provider Address: [address] [facility], [address], [place], [address] Pt has not been seen since she had completed MBSS on 05/18. STAFF TRAINER called pt who expressed her PCP has placed a new referral which is being processed. STAFF TRAINER to complete new evaluation once new referral is processed. Pt account to be discharged at this time.
== END 2025-07-26 11:14 | disposition home or self-care (01) ==
LOC: SP 15:56
PROVIDERS: Referring Provider Psychiatry & Neurology Neuromuscular Medicine; Visit Provider Psychiatry & Neurology Neuromuscular Medicine
DX: G71.11 Myotonic muscular dystrophy (principal)
CPT/HCPCS: 92610

== ENCOUNTER 2025-04-20 11:14 | Emergency (ER) | payer MEDICARE, SELFPAY ==
[2025-04-20 11:26] VITALS: BP 144/71; PULSE 63; RESP 16; TEMP 36.9; O2SAT 97; BMI 20.1
--- NOTE | 2025-04-20 12:04 | DI.CT.S_ITS ---
PROCEDURE: CT CERVICAL SPINE WO CON INDICATIONS: fall; chin pain TECHNIQUE: Noncontrast 3 mm thick sections acquired from the skull base to the T4 level. Sagittal and coronal reformats were then constructed. For radiation dose reduction, the following was used: automated exposure control, adjustment of mA and/or kV according to patient size. COMPARISON: [facility], CT, CT HEAD/BRAIN WO CON, 04/20/2025, 12:15. [facility], CT, CT FACIAL BONES WO CON, 04/20/2025, 12:15. [facility], CT, CT CERVICAL SPINE WO CON, 08/13/2024, 13:28. FINDINGS: Image quality: There is artifact associated with the metallic hardware. Artifact from the metallic hardware is reduced by metal reconstruction algorithm. Bones: No fractures or dislocations. Visualized superior ribs are intact. Focal degenerative change is seen involving the C1-C2 interface anteriorly. There is moderate disc space narrowing seen at C4-C5, with moderate to severe disc space narrowing at C5-C6. Moderate disc space narrowing seen at C6-C7. Posteriorly directed endplate osteophytes are seen, which are worst at C5-C6 and C6-C7. Soft tissues: Prevertebral soft tissues are normal in thickness. No paravertebral hematomas. No apical pneumothoraces. IMPRESSION: No displaced fracture or traumatic subluxation. Cervical spine degenerative changes are seen, which are worst inferiorly. Dictated by: Pierce Garcia M.D. on 04/20/2025 at 12:05 Approved by: Pierce Garcia M.D. on 04/20/2025 at 12:06
--- NOTE | 2025-04-20 12:04 | DI.CT.S_ITS ---
PROCEDURE: CT HEAD/BRAIN WO CON INDICATIONS: fall; chin pain TECHNIQUE: Noncontrast 4.5 mm thick angled axial sections acquired from the foramen magnum to the vertex, with coronal and sagittal reformats. For radiation dose reduction, the following was used: automated exposure control, adjustment of mA and/or kV according to patient size. COMPARISON: [facility], CT, CT HEAD/BRAIN WO CON, 08/13/2024, 13:28. FINDINGS: Image quality: Diagnostic. CSF spaces: Basal cisterns are patent. No extra-axial fluid collections. The ventricles are symmetric in size and shape. Brain: No intracranial bleeds or mass effect. There is cerebral volume loss, with resultant ventricular and sulcal prominence. There are periventricular and deep white matter chronic small vessel ischemic changes. There is intracranial internal carotid artery atherosclerosis. Skull and face: Calvarium and visualized facial bones appear intact, without suspicious lesions. Sinuses: Visualized sinuses and mastoids are clear. IMPRESSION: No acute intracranial hemorrhage is seen. No acute intracranial pathology. Dictated by: Pierce Garcia M.D. on 04/20/2025 at 11:58 Approved by: Pierce Garcia M.D. on 04/20/2025 at 11:59
--- NOTE | 2025-04-20 12:04 | DI.CT.S_ITS ---
PROCEDURE: CT FACIAL BONES WO CON INDICATIONS: fall; chin pain TECHNIQUE: Noncontrast 2.5 mm thick axial images acquired from the mandible through the frontal sinuses, with coronal and sagittal reformatting. For radiation dose reduction, the following was used: automated exposure control, adjustment of mA and/or kV according to patient size. COMPARISON: [facility], CT, CT CERVICAL SPINE WO CON, 04/20/2025, 12:15. [facility], CT, CT HEAD/BRAIN WO CON, 04/20/2025, 12:15. FINDINGS: Image quality: There is artifact associated with the metallic hardware. Artifact from the metallic hardware is reduced by metal reconstruction algorithm. Bones and teeth: Orbital bright are intact. Sinus bright show no fracture or deformity. Nasal bones and septum are intact. In this patient with this given history, scrutiny is given to the mandible. Visualized portions of the mandible demonstrate no fractures or subluxation. Zygomatic arches are intact. Pterygoid plates are intact. Visualized portions of the skull base and auditory canals are intact. Sinuses: Paranasal sinuses are aerated, without fluid levels, mucosal thickening, or mucoceles. Mastoid air cells are aerated. Soft tissues: No edema, masses, or fluid collections. No enlarged lymph nodes. No soft tissue lacerations or debris. Vascular: Visualized vascular structures appear normal in the absence of contrast. Bony vascular foramina and canals are intact. IMPRESSION: No facial bone fracture can be seen. Specifically, no mandible fracture or dislocation is seen. Dictated by: Pierce Garcia M.D. on 04/20/2025 at 11:56 Approved by: Pierce Garcia M.D. on 04/20/2025 at 11:58
--- NOTE | 2025-04-20 12:20 | PC.NURSE ---
Small 1cm laceration to underside of chin. [id number] purple bruising to underside of chin, appears older than current injury. Bleeding controlled. Cleansed with hibicleanse prior to repair.
--- NOTE | 2025-04-20 13:03 | ED_ITS ---
HPI - Wound/Laceration <Tawny Huber PA-C - Last Filed: 04/20/25 14:05> General Chief Complaint: Wound/Laceration Stated Complaint: Fell and hurt her chin x 1 day Time Seen by Provider: 04/20/25 12:04 Source: patient Mode of arrival: Family Vehicle History of Present Illness HPI narrative: Ms. Montgomery is a very pleasant 75-year-old female with a past medical history of muscular dystrophy who presents to the emergency department for chin pain/laceration after a trip and fall that occurred at home today. Patient states she unfortunately falls quite often because of her muscular dystrophy. She fell a few days ago hitting her chin causing bruising. Today while she was at home she tripped over a radio and hit her chin on the carpet causing a small laceration. There was no loss of consciousness and she does not take blood thinners. She reports some chronic neck pain, she has no new or change neck pain after the fall. She denies any injuries to her extremities, chest pain, back pain, abdominal pain. She is here with her cousin. Her tetanus shot was updated last year. Related Data Home Medications ?Medication ?Instructions ?Recorded ?Confirmed hydrocodone 5 mg-acetaminophen 325 1 tab PO Q6H PRN pa in 12/30/24 12/31/24 mg tablet Previous Rx's ?Medication ?Instructions ?Recorded lidocaine 5 % topical patch 1 patch topical DAILY #15 ea 08/13/24 (Lidoderm) naproxen 375 mg tablet 375 mg PO BID PRN pain #10 t abs 08/13/24 pravastatin 40 mg tablet 40 mg PO ONCE PM #30 tabs albuterol sulfate 90 mcg/actuation 1 inh inhalation QI D #8.5 grams 12/31/24 aerosol inhaler doxycycline hyclate 100 mg capsule 100 mg PO BID #10 c aps 12/31/24 Allergies Allergy/AdvReac Type Severity Reaction Status Date / Time ibuprofen AdvReac Mild Nausea Verified 12/31/24 05:29 Review of Systems <Tawny Huber PA-C - Last Filed: 04/20/25 14:05> Review of Systems ROS Unobtainable: All systems reviewed & are unremarkable except as noted in HPI and below Patient History <Tawny Huber PA-C - Last Filed: 04/20/25 14:05> Social History household members: children Exam <Tawny Huber PA-C - Last Filed: 04/20/25 14:05> Narrative Exam Narrative: GENERAL: 75 year old patient appears stated age. Well-developed patient, in no acute distress. HEAD: Atraumatic. Normocephalic. EYES: PERRL. Extraocular motions intact. No scleral icterus. No injection or drainage. ENT: Nose without bleeding, purulent drainage. There is ecchymosis on the chin/mandible region. On the right side of the chin there is a 1 cm laceration, bleeding is controlled. NECK: Trachea midline. Cervical ROM intact. No midline cervical tenderness. CARDIOVASCULAR: Regular rate and rhythm. RESPIRATORY: ?Nonlabored respirations. ?Speaking in clear, full sentences. ?Clear to auscultation. Breath sounds equal bilaterally. No wheezes, rales, or rhonchi. ? EXTREMITIES: No UE or LE TTP. BACK: Nontender. NEURO: AOx3. ?Clear speech. SKIN: Mandible bruising and small laceration described above. Initial Vital Signs Initial Vital Signs: Vital Signs Temperature 98.5 F 04/20/25 11:26 Pulse Rate 63 04/20/25 11:26 Respiratory Rate 16 04/20/25 11:26 Blood Pressure 144/71 H 04/20/25 11:26 Pulse Oximetry 97 04/20/25 11:26 Oxygen Delivery Method Room Air 04/20/25 11:26 <Efrain Alanis MD - Last Filed: 04/21/25 07:03> Initial Vital Signs Initial Vital Signs: Vital Signs Temperature 98.5 F 04/20/25 11:26 Pulse Rate 63 04/20/25 11:26 Respiratory Rate 16 04/20/25 11:26 Blood Pressure 144/71 H 04/20/25 11:26 Pulse Oximetry 97 04/20/25 11:26 Oxygen Delivery Method Room Air 04/20/25 11:26 Procedures <Tawny Huber PA-C - Last Filed: 04/20/25 14:05> Laceration Repair Laceration 1: Time of procedure: 13:25 Site: face (chin) Side (If applicable): right Size (cm): 1 Description: linear Depth: simple, single layer Local Anesthetic: other anesthetic (topical lido 1% with epi, 1 ml) Pre-repair: wound explored, irrigated extensively and deep structures intact Skin layer closed with: steri-strips (5) Course <Tawny Huber PA-C - Last Filed: 04/20/25 14:05> Orders Ordered: ED Orders 04/20/25 12:04 CT cervical spine wo con Stat CT facial bones wo con Stat CT head/brain wo con Stat Vital Signs Vital signs: Vital Signs - 8 hr 04/20/25 11:26 04/20/25 13:51 Temperature 98.5 F Pulse Rate 63 60 Respiratory Rate 16 17 Blood Pressure 144/71 H 168/88 H Pulse Oximetry 97 95 Oxygen Delivery Method Room Air Room Air <Efrain Alanis MD - Last Filed: 04/21/25 07:03> Orders Ordered: ED Orders 04/20/25 12:04 CT cervical spine wo con Stat CT facial bones wo con Stat CT head/brain wo con Stat Vital Signs Vital signs: Vital Signs - 8 hr 04/20/25 11:26 04/20/25 13:51 Temperature 98.5 F Pulse Rate 63 60 Respiratory Rate 16 17 Blood Pressure 144/71 H 168/88 H Pulse Oximetry 97 95 Oxygen Delivery Method Room Air Room Air MDM - Wound/Laceration <Tawny Huber PA-C - Last Filed: 04/20/25 14:05> Medical Records Attestation: I reviewed the patient's medical records. Imaging Data CT scan - head: Radiologist's Impression: PROCEDURE: CT HEAD/BRAIN WO CON INDICATIONS: fall; chin pain TECHNIQUE: Noncontrast 4.5 mm thick angled axial sections acquired from the foramen magnum to the vertex, with coronal and sagittal reformats. For radiation dose reduction, the following was used: automated exposure control, adjustment of mA and/or kV according to patient size. COMPARISON: [facility], CT, CT HEAD/BRAIN WO CON, 08/13/2024, 13:28. FINDINGS: Image quality: Diagnostic. CSF spaces: Basal cisterns are patent. No extra-axial fluid collections. The ventricles are symmetric in size and shape. Brain: No intracranial bleeds or mass effect. There is cerebral volume loss, with resultant ventricular and sulcal prominence. There are periventricular and deep white matter chronic small vessel ischemic changes. There is intracranial internal carotid artery atherosclerosis. Skull and face: Calvarium and visualized facial bones appear intact, without suspicious lesions. Sinuses: Visualized sinuses and mastoids are clear. IMPRESSION: No acute intracranial hemorrhage is seen. No acute intracranial pathology. Dictated by: Pierce Garcia M.D. on 04/20/2025 at 11:58 Approved by: Pierce Garcia M.D. on 04/20/2025 at 11:59 CT - cervical spine: Radiologist's Impression: PROCEDURE: CT CERVICAL SPINE WO CON INDICATIONS: fall; chin pain TECHNIQUE: Noncontrast 3 mm thick sections acquired from the skull base to the T4 level. Sagittal and coronal reformats were then constructed. For radiation dose reduction, the following was used: automated exposure control, adjustment of mA and/or kV according to patient size. COMPARISON: [facility], CT, CT HEAD/BRAIN WO CON, 04/20/2025, 12:15. [facility], CT, CT FACIAL BONES WO CON, 04/20/2025, 12:15. [facility], CT, CT CERVICAL SPINE WO CON, 08/13/2024, 13:28. FINDINGS: Image quality: There is artifact associated with the metallic hardware. Artifact from the metallic hardware is reduced by metal reconstruction algorithm. Bones: No fractures or dislocations. Visualized superior ribs are intact. Focal degenerative change is seen involving the C1-C2 interface anteriorly. There is moderate disc space narrowing seen at C4-C5, with moderate to severe disc space narrowing at C5-C6. Moderate disc space narrowing seen at C6-C7. Posteriorly directed endplate osteophytes are seen, which are worst at C5-C6 and C6-C7. Soft tissues: Prevertebral soft tissues are normal in thickness. No paravertebral hematomas. No apical pneumothoraces. IMPRESSION: No displaced fracture or traumatic subluxation. Cervical spine degenerative changes are seen, which are worst inferiorly. Dictated by: Pierce Garcia M.D. on 04/20/2025 at 12:05 Approved by: Pierce Garcia M.D. on 04/20/2025 at 12:06 CT scan - face: Radiologist's Impression: PROCEDURE: CT FACIAL BONES WO CON INDICATIONS: fall; chin pain TECHNIQUE: Noncontrast 2.5 mm thick axial images acquired from the mandible through the frontal sinuses, with coronal and sagittal reformatting. For radiation dose reduction, the following was used: automated exposure control, adjustment of mA and/or kV according to patient size. COMPARISON: [facility], CT, CT CERVICAL SPINE WO [facility], 04/20/2025, 12:15. [facility], CT, CT HEAD/BRAIN WO CON, 04/20/2025, 12:15. FINDINGS: Image quality: There is artifact associated with the metallic hardware. Artifact from the metallic hardware is reduced by metal reconstruction algorithm. Bones and teeth: Orbital bright are intact. Sinus bright show no fracture or deformity. Nasal bones and septum are intact. In this patient with this given history, scrutiny is given to the mandible. Visualized portions of the mandible demonstrate no fractures or subluxation. Zygomatic arches are intact. Pterygoid plates are intact. Visualized portions of the skull base and auditory canals are intact. Sinuses: Paranasal sinuses are aerated, without fluid levels, mucosal thickening, or mucoceles. Mastoid air cells are aerated. Soft tissues: No edema, masses, or fluid collections. No enlarged lymph nodes. No soft tissue lacerations or debris. Vascular: Visualized vascular structures appear normal in the absence of contrast. Bony vascular foramina and canals are intact. IMPRESSION: No facial bone fracture can be seen. Specifically, no mandible fracture or dislocation is seen. Dictated by: Pierce Garcia M.D. on 04/20/2025 at 11:56 Approved by: Pierce Garcia M.D. on 04/20/2025 at 11:58 [facility] Narrative Medical decision making narrative: 75-year-old female with a past medical history of muscular dystrophy who presents to the emergency department for chin pain/laceration after a trip and fall that occurred at home today. Differential diagnosis includes but isn't limited to closed head injury, mandibular fracture, dislocation, laceration, abrasion, bruising, etc. On exam patient is in no acute distress, nontoxic-appearing, all vital signs within normal limits. She has a small 1 cm laceration on the right side of her chin that occurred today with surrounding bruising that actually occurred from a fall a few days ago. She is able to open and close her mouth appropriately, no deformities. No LOC or thinners. She is only experiencing pain of her chin at this time. Obtain CT imaging head face and neck. CT face, head, cervical spine reveal no acute bony abnormalities. I did discuss chronic cervical degenerative disc disease with the patient and her cousin. A medical record release form was filled out by the patient and placed in the medical records mailbox by the nurse so patient's records can be shared with her primary care doctor at . Small laceration on her chin was cleansed, irrigated and reapproximated using Steri-Strips, a bandage was then placed on top. Discussed proper wound care, follow up with PCP, strict ER return precautions. She declines need for pain medication as she does have new script for tramadol. Patient and her cousin verbalized understanding of all information agreeable to plan. Due to technical problems, discharge paperwork was unable to be printed therefore I did allow the patient's cousin to take pictures of the paperwork so the patient has her information. Patient is ambulatory and stable for discharge home. Discharge Plan Departure Patient Disposition: Home Clinical Impression: Degenerative disc disease, cervical Chin laceration Qualifiers: Encounter type: initial encounter Qualified Code(s): S01.81XA - Laceration without foreign body of other part of head, initial encounter Fall Qualifiers: Encounter type: initial encounter Qualified Code(s): W19.XXXA - Unspecified fall, initial encounter Instructions: DI for Laceration Repair-Skin Closure Strips, DI for Degenerative Disc Disease Activity Restrictions/Additional Instructions: Dear Ms. Montgomery, Thank you for coming to the emergency department. I am very sorry that you had a fall. Today we obtain CT scan of your head, face and your neck. This imaging revealed no brain bleed, no fracture of the face. You do have underlying moderate to severe cervical spine degenerative disc disease which you need to follow up with your primary care doctor about as this is likely causing your chronic neck pain. Please rest, hydrate, use your prescribed tramadol and Tylenol if needed for pain. Today you had a laceration to your chin We have repaired the laceration using skin tape called Steri-Strips. The skin tape come off on its own within the next 1-2 weeks, please do not pick or peel off this tape. Please keep the dressing on your wound clean, dry, and intact for the next 24 hours. After this time, you may remove the dressing and gently clean the wound with soap and water, then pat dry. Keep the wound clean and covered. Avoid soaking the wound in any water such as a bath, pool, or the ocean. If you develop any signs of wound infection such as increased redness, pus drainage, streaking redness, or fevers, please return to the ER immediately for evaluation. Once sutures are removed and the wound has healed, apply sunscreen daily to reduce the appearance of scars. Please apply ice to the chin up to 4 times a day for 15 minutes to help with bruising and swelling. Please return to the emergency department if develop any new or worsening symptoms, severe pain, persistent vomiting or any concerns. Please follow up with your primary care doctor within the next 2-3 days for ER follow-up. (If you do not have a PCP you can call [phone]. ?to schedule an appointment with an [facility] Primary Care Provider) IF YOU DEVELOP ANY NEW OR WORSENING SYMPTOMS, RETURN TO THE ER! Please read the attached instructions, they highlight more specific treatments and interventions for you at home. Thank you for letting me participate in your care, Tawny Huber PA-C Prescriptions: No Action hydrocodone-acetaminophen 5-325 mg tablet 1 tab PO Q6H PRN (Reason: pain) pravastatin 40 mg tablet 40 mg PO ONCE PM Qty: 30 3RF doxycycline hyclate 100 mg capsule 100 mg PO BID Qty: 10 0RF albuterol sulfate 90 mcg/actuation HFA aerosol inhaler 1 inh inhalation QID Qty: 8.5 0RF Rx Instructions: With spacer. naproxen 375 mg tablet 375 mg PO BID PRN (Reason: pain) Qty: 10 0RF Rx Instructions: take with food. lidocaine [Lidoderm] 5 % adhesive patch,medicated 1 patch topical DAILY Qty: 15 0RF Rx Instructions: leave on most painful area for up to 12 hrs Referrals: Lady Mayra Tse MD [Primary Care Provider, Internal Medicine] Stand Alone Forms: Patient Portal/API ED Sign-out <Efrain Alanis MD - Last Filed: 04/21/25 07:03> Cosign ED Attending Cosluis miguelature Attestation: I was immediately available in the department for consultation. ?This documentation has been reviewed and I agree with assessment and plan. Supervised by Efrain Alanis MD
[2025-04-20 13:51] VITALS: BP 168/88; PULSE 60; RESP 17; O2SAT 95
== END 2025-04-20 13:50 | disposition home or self-care (01) ==
PROVIDERS: Emergency Provider Physician Assistant; PCP Internal Medicine
DX: S01.81XA Laceration without foreign body of other part of head, initial encounter (principal); M50.321 Other cervical disc degeneration at C4-C5 level; M50.323 Other cervical disc degeneration at C6-C7 level; W01.0XXA Fall on same level from slipping, tripping and stumbling without subsequent striking against object, initial encounter
CPT/HCPCS: 70450; 70486; 72125; 99282; 99284

== ENCOUNTER 2025-04-25 10:14 | Emergency (ER) | payer MEDICARE, SELFPAY ==
[2025-04-25 10:25] VITALS: BP 151/69
[2025-04-25 10:26] VITALS: BP 151/69; PULSE 69; PULSE 70; RESP 13; TEMP 36.9; O2SAT 94; O2SAT 95; BMI 20.1
[2025-04-25 10:30] VITALS: BP 141/57; PULSE 68; O2SAT 94
--- NOTE | 2025-04-25 11:26 | ED.FALL ---
HPI - Fall <Tawny Huber PA-C - Last Filed: 04/25/25 12:29> General Chief Complaint: Fall Stated Complaint: Fell and reopened her cut on chin Time Seen by Provider: 04/25/25 11:10 Source: patient Mode of arrival: Wheelchair History of Present Illness HPI Narrative: Ms. Montgomery is a pleasant 75 year old female with a past medical history of muscular dystrophy who presents to the emergency department for dehiscence of her chin laceration from 04/20/25 after having a subsequent fall at home. Because of the patient's muscular dystrophy she does have frequent falls, she does ambulate with a walker but sometimes does not use it. She was here in the ER on 04/20 after falling and causing a laceration on her chin which is closed with Steri-Strips. Patient states that she remove the Steri-Strips today and applied Neosporin because she thought it has been long enough. She attempted to hurry to the phone without using her walker and fell forward. Reports reopening her chin laceration and also having some pain of her left hip and left great toe. There was no loss of consciousness, no blood thinner use, no headache or neck pain. Patient has been ambulatory since the fall. She has some bleeding of her chin laceration, otherwise no other wounds. Tdap UTD 2023. Related Data Home Medications ?Medication ?Instructions ?Recorded ?Confirmed hydrocodone 5 mg-acetaminophen 325 1 tab PO Q6H PRN pain 12/30/24 12/31/24 mg tablet Previous Rx's ?Medication ?Instructions ?Recorded lidocaine 5 % topical patch 1 patch topical DAILY #15 ea 08/13/24 (Lidoderm) naproxen 375 mg tablet 375 mg PO BID PRN pain #10 tabs 08/13/24 pravastatin 40 mg tablet 40 mg PO ONCE PM #30 tabs 10/31/24 albuterol sulfate 90 mcg/actuation 1 inh inhalation QID #8.5 grams 12/31/24 aerosol inhaler doxycycline hyclate 100 mg capsule 100 mg PO BID #10 caps 12/31/24 Allergies Allergy/AdvReac Type Severity Reaction Status Date / Time ibuprofen AdvReac Mild Nausea Verified 04/25/25 10:27 Review of Systems <Tawny Huber PA-C - Last Filed: 04/25/25 12:29> Review of Systems ROS Unobtainable: All systems reviewed & are unremarkable except as noted in HPI and below Patient History <Tawny Huber PA-C - Last Filed: 04/25/25 12:29> Social History household members: children Smoking Status: Unknown if ever smoked Exam <Tawny Huber PA-C - Last Filed: 04/25/25 12:29> Narrative Exam Narrative: GENERAL: 75 year old patient appears stated age. Well-developed patient, in no acute distress. HEAD: Normocephalic. No scalp tenderness or wounds. EYES: PERRL. Extraocular motions intact. No scleral icterus. No injection or drainage. ENT: Clear ear canals and pearly maya TMs bilaterally with no hemotympanum or brooks sign. Nose without bleeding, purulent drainage. Throat without erythema, tonsillar hypertrophy or exudate. Airway patent. On the bottom of the patient's chin, she is healing ecchymosis and a 2 cm linear healing laceration with superficial dehiscence. NECK: Trachea midline. Cervical ROM intact. No midline cervical tenderness. CARDIOVASCULAR: Regular rate and rhythm. RESPIRATORY: ?Nonlabored respirations. ?Speaking in clear, full sentences. ?Clear to auscultation. EXTREMITIES: Slight break in the distal tip of the left great toenail. No tenderness to palpation of the left great toe, ecchymosis or swelling. 2+ DP and PT pulse on the left foot. No tenderness to palpation of the bilateral ankles, knees. Patient does have some tenderness to palpation of the left greater trochanter of the femur. She is ambulatory with no deformities of the hip. BACK: Nontender without deformity or crepitance. No flank tenderness. NEURO: AOx3. ?Clear speech. ?Moves all 4 extremities appropriately. Sensation intact to light touch in the bilateral lower extremities. SKIN: No rash or erythema of visible areas. Chin laceration described above. Initial Vital Signs Initial Vital Signs: Vital Signs Blood Pressure 151/69 H 04/25/25 10:25 <Efrain Alanis MD - Last Filed: 04/25/25 19:53> Initial Vital Signs Initial Vital Signs: Vital Signs Blood Pressure 151/69 H 04/25/25 10:25 Procedures <Tawny Huber PA-C - Last Filed: 04/25/25 12:29> Laceration Repair Laceration 1: Site: face (chin ) Side (If applicable): right Size (cm): 2 Description: linear Depth: simple, single layer Local Anesthetic: lidocaine 1%, with epi and other anesthetic (topical) Amount of anesthesia used (mL): 1 Pre-repair: wound explored, irrigated extensively and deep structures intact Skin layer closed with: steri-strips (6) Course <Tawny Huber PA-C - Last Filed: 04/25/25 12:29> Orders Ordered: ED Orders 04/25/25 11:33 XR hip w pel LT 2V Stat Vital Signs Vital signs: Vital Signs - 8 hr 04/25/25 10:25 04/25/25 10:26 04/25/25 10:26 Temperature 98.4 F Pulse Rate 69 70 Respiratory Rate 13 Blood Pressure 151/69 H 151/69 H Pulse Oximetry 94 95 Oxygen Delivery Method Room Air 04/25/25 10:30 04/25/25 10:30 04/25/25 11:53 Temperature Pulse Rate 68 70 Respiratory Rate Blood Pressure 141/57 H 165/74 H Pulse Oximetry 94 97 Oxygen Delivery Method Room Air <Efrain Alanis MD - Last Filed: 04/25/25 19:53> Orders Ordered: ED Orders 04/25/25 11:33 XR hip w pel LT 2V Stat Vital Signs Vital signs: Vital Signs - 8 hr 04/25/25 10:25 04/25/25 10:26 04/25/25 10:26 Temperature 98.4 F Pulse Rate 69 70 Respiratory Rate 13 Blood Pressure 151/69 H 151/69 H Pulse Oximetry 94 95 Oxygen Delivery Method Room Air 04/25/25 10:30 04/25/25 10:30 04/25/25 11:53 Temperature Pulse Rate 68 70 Respiratory Rate Blood Pressure 141/57 H 165/74 H Pulse Oximetry 94 97 Oxygen Delivery Method Room Air MDM - Fall <Tawny Huber PA-C - Last Filed: 04/25/25 12:29> Medical Records Attestation: I reviewed the patient's medical records. Imaging Data Left Hip XR: Radiologist's Impression: PROCEDURE: XR HIP W PEL IF DONE LT 2V INDICATIONS: fall; L hip pain TECHNIQUE: AP pelvis with lateral view(s) of the left hip(s). COMPARISON: None. FINDINGS: Bones: No fractures or dislocations. Mild, bilateral and symmetric hip joint degeneration. Pelvic ring appears intact. No suspicious bony lesions. Soft tissues: The visualized bowel gas pattern is normal. No suspicious soft tissue calcifications. IMPRESSION: No visible displaced fractures. If the patient cannot bear weight, consider advanced imaging such as CT or MRI. Dictated by: Mariama Toney M.D. on 04/25/2025 at 11:57 Approved by: Mariama Toney M.D. on 04/25/2025 at 11:59 [facility] Narrative Medical decision making narrative: 75 year old female with a past medical history of muscular dystrophy who presents to the emergency department for dehiscence of her chin laceration from 04/20/25 after having a subsequent fall at home. This was a witnessed trip and fall, no syncope loss of consciousness. Patient is somewhat scraped the chin causing dehiscence of her wound but had no significant head trauma. Differential diagnosis includes but is not limited to wound dehiscence, left hip sprain, strain, contusion, fracture, etc. On exam patient is in no acute distress, nontoxic appearing, vital signs within normal limits. She has superficial dehiscence of her chin laceration from a few days ago. Otherwise no signs of any head trauma, no tenderness of the neck, upper extremities or lower extremities with the exception of the left greater trochanter, we will obtain x-ray left hip. She is ambulatory neurovascularly intact. Tdap is up-to-date. Lidocaine 1% with epinephrine apply topically to chin wound prior to cleansing. After wound was cleansed, it was apparent that the dehiscence was extremely superficial, no new laceration, therefore Steri-Strips were used to approximate and allow complete healing. Left hip x-ray reveals no visible displaced fractures, mild bilateral and symmetric hip joint tender duration. ?if the patient can not bear weight, consider advanced imaging such as CT or MRI ?. Patient is ambulatory in the ED, feeling better after repair of chin laceration. Recommended rest, supportive care, leaving Steri-Strips intact for least 1 week and not picking or peeling them off. Advised PCP follow up and discussed strict ER return precautions. Patient and her caregiver verbalized understanding of all information agreeable with the plan, patient is ambulatory and stable for discharge home. Discharge Plan Departure Patient Disposition: Home Clinical Impression: Hip pain, left Dehiscence of wound of skin Qualifiers: Encounter type: initial encounter Qualified Code(s): T81.30XA - Disruption of wound, unspecified, initial encounter Fall Qualifiers: Encounter type: initial encounter Qualified Code(s): W19.XXXA - Unspecified fall, initial encounter Instructions: DI for Laceration Repair-Skin Closure Strips, How to Prevent Falls, DI for Hip Pain Activity Restrictions/Additional Instructions: Dear Ms. Montgomery, Thank you for coming to the emergency department. Today you were evaluated for chin wound and left hip pain after fall. Your x-ray reveals no fractures of the hip but you do have arthritis in both hips. Your wound laceration is almost healed, new Steri-Strips were applied in addition to a dressing. Please keep the dressing on for a full 24 hours and then do not remove the Steri-Strips, let them come off on their own, I would like them to stay in place for at least a week. Please apply a new bandage to the wound every single day. Please follow up with your primary care doctor and return to the emergency department for any new or worsening symptoms or concerns such as redness or drainage from the wound, fevers or other concerns. Please use your walker every day to prevent falls. Please follow up with your primary care doctor within the next 2-3 days for ER follow-up. (If you do not have a PCP you can call [phone]. ?to schedule an appointment with an [facility] Primary Care Provider) IF YOU DEVELOP ANY NEW OR WORSENING SYMPTOMS, RETURN TO THE ER! Please read the attached instructions, they highlight more specific treatments and interventions for you at home. Thank you for letting me participate in your care, Tawny Huber PA-C Prescriptions: No Action hydrocodone-acetaminophen 5-325 mg tablet 1 tab PO Q6H PRN (Reason: pain) pravastatin 40 mg tablet 40 mg PO ONCE PM Qty: 30 3RF doxycycline hyclate 100 mg capsule 100 mg PO BID Qty: 10 0RF albuterol sulfate 90 mcg/actuation HFA aerosol inhaler 1 inh inhalation QID Qty: 8.5 0RF Rx Instructions: With spacer. naproxen 375 mg tablet 375 mg PO BID PRN (Reason: pain) Qty: 10 0RF Rx Instructions: take with food. lidocaine [Lidoderm] 5 % adhesive patch,medicated 1 patch topical DAILY Qty: 15 0RF Rx Instructions: leave on most painful area for up to 12 hrs Referrals: Lady Mayra Tse MD [Primary Care Provider, Internal Medicine] Stand Alone Forms: Patient Portal/API ED Sign-out <Efrain Alanis MD - Last Filed: 04/25/25 19:53> Cosign ED Attending Cosignature Attestation: I was immediately available in the department for consultation. This documentation has been reviewed and I agree with assessment and plan. Supervised by Efrain Alanis MD
--- NOTE | 2025-04-25 11:33 | DI.RAD.S_ITS ---
PROCEDURE: XR HIP W PEL IF DONE LT 2V INDICATIONS: fall; L hip pain TECHNIQUE: AP pelvis with lateral view(s) of the left hip(s). COMPARISON: None. FINDINGS: Bones: No fractures or dislocations. Mild, bilateral and symmetric hip joint degeneration. Pelvic ring appears intact. No suspicious bony lesions. Soft tissues: The visualized bowel gas pattern is normal. No suspicious soft tissue calcifications. IMPRESSION: No visible displaced fractures. If the patient cannot bear weight, consider advanced imaging such as CT or MRI. Dictated by: Mariama Toney M.D. on 04/25/2025 at 11:57 Approved by: Mariama Toney M.D. on 04/25/2025 at 11:59
[2025-04-25 11:53] VITALS: BP 165/74; PULSE 70; O2SAT 97
== END 2025-04-25 12:45 | disposition home or self-care (01) ==
PROVIDERS: Emergency Provider Physician Assistant; PCP Internal Medicine
DX: T81.30XA Disruption of wound, unspecified, initial encounter (principal); M25.552 Pain in left hip; W18.30XA Fall on same level, unspecified, initial encounter
CPT/HCPCS: 73502; 99283

== ENCOUNTER → 2025-05-18 10:40 | Outpatient (CLI) | payer MEDICARE, SELFPAY ==
--- NOTE | 2025-05-18 17:51 | ST.SWALLOW ---
Visit Care Team Role Provider Type Lady Mayra Tse MD Primary Care Provider Non-Staff Referring Provider Specialty: Internal Medicine Address: [address] [place], [address] Email: Doctor Katherine MD Family Provider Non-Staff Specialty: Medical Address: Phone: Fax: Email: Param Doll MD Attending Provider Non-Staff Specialty: Psychiatry Address: [address] [facility], [place], [address] Email: Modified Barium Swallow Study [employer] Modified Barium Swallow Study Start: 05/18/25 16:29 Freq: Status: Active Protocol: Document 05/18/25 16:30 LNK (Rec: 05/18/25 17:51 LNK Desktop) Modified Barium Swallow Study Total Time Visit Start Time 11:00 Visit Stop Time 12:00 Total Visit Minutes [address] Doll, Neurology, Reason for Referral dysphagia Setting Setting Outpatient Care Patient Information Identification Type Name,Date of Patient History Pt was seen for a Modified Barium Swallow Study. Pt has been diagnosed with myotonic muscular dystrophy. She reports that she began to notice swallowing symptoms at least 4-5 years ago. She has not noticed a change in the severity/frequency of her symptoms. Pt was previously hospitalized at [facility] for pneumonia and acute respiratory failure with hypoxemia 12/30/24-. Per discharge report, ?chest x -ray and CT scan of the chest were done. CT angio of the chest shows no PE but did show signs of mild bronchiectasis and consolidation of the mid to lower lung bilaterally there is concern for aspiration or bronchopneumonia.? Pt denied unintentional weight loss, GERD, or other esophageal symptoms. She reported coughing and choking with solids, such as breads and meats, as well as increased effort with mastication. Pt was accompanied to the MBSS by her cousin, who assisted with providing pt's PMH. Ptr was seen for swallowing therapy at [facility] by on 02/09/25 The results of a clinical swallow evaluation indicated the pt presents with signs and symptoms of oropharyngeal dysphagia, likely related to the pt's dx of myotonic muscular dystrophy complicated by impulsiveness with intake. ST recommended an PMSS to to thoroughly assess pt?s swallow pathophysiology in order to determine the safest diet, effective compensatory strategies, and p otential rehabilitative exercises for therapy. Pt did not return for swallowing therapy. Subjective Pt was seated in the flouroscopy chair with directions Observations and procedures explained for him. He indicated he understood and agreed to proceed. Patient Positioning Position View Lat-A/P Imaging Lateral View Textures Administered Trials Presented Thin Liquid via Spoon (IDDSI 0),Thin Liquid via Cup ( IDDSI 0),Extremely Thick Liquid via Spoon (IDDSI 4), Regular (IDDSI 7) Barium Tablet Yes The IDDSI Framework Protocol: IDDSI.1 Oral Impairment Source: The Modified Barium Swallow Impairment Profile (MBSImP??) Lip Closure Interlabial escape; no progression to anterior lip Tongue Control Posterior escape of greater than half of bolus During Bolus Hold Bolus Preparation/ Disorganized chewing/mashing with solid pieces of bolus Mastication unchewed Bolus Transport/ Repetitive/disorganized tongue motion Lingual Motion Oral Residue Residue collection on oral structures Location Tongue Initiation of Bolus head at pyriforms Pharyngeal Swallow Additional Oral *OME and DKS were observed to be adequate. Impairment *Dentition natural Observations *Mastication observed to be disorganized with unchewed pieces in the bolus. *Reduced bolus formation and control with posterior spillage of greater than half of the bolus *Delayed swallow initiation *Pt's speech hypernasal, indicating inadequate velar closure Oral phase of swallow was observed to be mild/ moderately impaired Pharyngeal Impairment Source: The Modified Barium Swallow Impairment Profile (MBSImP??) Soft Palate No bolus between soft palate & pharyngeal wall Elevation Laryngeal Elevation Part.sup.move.thyroid cart/part.approx.arytenoids to epiglot.petiole Anterior Hyoid No anterior movement Excursion Epiglottic Movement Partial inversion Laryngeal Vestibular Incomplete; narrow column air/contrast in laryngeal Closure vestibule Pharyngeal Stripping Absent Wave Pharyngoesophageal Partial distention/partial duration; partial Segment Opening obstruction of flow Tongue Base Narrow column of contrast/air betwn tongue base & post. Retraction pharyngeal wall Pharyngeal Residue Majority of contrast within/on pharyngeal structures Location Diffuse (>3 areas) Additional *Reduced hyolaryngeal elevation; no anterior movement Pharyngeal of the hyoid Impairment *Epiglottic inversion incomplete to horizontal position Observations - reduced airway protection *Laryngeal penetration observed contacting vocal folds with visible laryngeal residue (PAS 5). No aspiration observed. No reflexive response to penetration of contrast *Absent stripping of the posterior pharyngeal wall stripping resulting in poor bolus control and significant pharyngeal pooling of solid and semi-solid trials. Pooling also noted with liquid trials *Thin liquids were swallowed with contrast residual within the vallecula observed to penetrate the laryngeal vestibule x5. Vallecular pooling of liquids *Majority of contrast for semi-solid and solid trials were observed within or on the pharyngeal structures. Multiple swallow attempts were cued with some clearance to the stomach. Pt requested water to clear the pharynx, which wa partially effective. Pharyngeal phase of swallow moderately impaired A/P View The IDDSI Framework Protocol: IDDSI.1 A/P View Observations Pharyngeal Complete Contraction Esophageal Clearance Esophageal retention Upright Position Vocal Fold Function Good Esophageal Function WFL Additional A-P Thin barium and calibrated barium tablet provided for Observations AP trials *Thin barium cleared to the stomach in a timely manner *No residual of semi-solid or solid trials retained in esophagus *Calibrated barium tablet cleared to LES. Tablet remained at LES and did not clear to the stomach *MBSS stopped befor the tablet cleared esophagus Esophageal phase of swallow WFL Clinical Impressions Dysphagia Type Oral,Pharyngeal Findings *Pt presented with moderate oropharyngeal dysphagia characterized by overall weakness of the structures and moderately reduced oropharyngeal function. Please review the oral and pharyngeal observations sections above for details. *Pt is at risk for aspiration *Swallow therapy is recommended for base of tongue exercises and safe swallow strategies. *The results and recommendations of the MBSS were described to the pt and her caregiver/cousin while observing still pictures taken during the MBSS. All questions were answered Rehabilitation Fair Potential Patient Appropriate Yes for Therapy Recommendations Diet Liquids Order Thin (IDDSI 0) Diet Order Soft & Bite-sized (IDDSI 6) Medication As Tolerated Recommendation Additional Dietary Reminders to Use Strategies Needs Aspiration Precautions Recommended Alternate Liquids/Solids,Small Bites/Sips Precautions
== END ==
LOC: RAD 10:41
PROVIDERS: PCP Internal Medicine; Referring Provider Internal Medicine; Visit Provider Psychiatry & Neurology Neuromuscular Medicine
DX: G71.11 Myotonic muscular dystrophy (principal)
CPT/HCPCS: 74230; 92611

== ENCOUNTER → 2025-07-14 16:37 | Outpatient (CLI) | payer MEDICARE, SELFPAY ==
[2025-07-14 18:15] LABS: Add Manual Diff / Slide Review NO; Hematocrit 41.8 % (36-46); Hemoglobin 14.0 g/dL (12.0-16.0); Lymphocytes Absolute Auto 2600 /uL (1100-4500); Mean Corpuscular HGB Conc 33.4 % (30-36); Mean Corpuscular Hemoglobin 32.9 PG (26-34); Mean Corpuscular Volume 98.3 fL (80-100); Platelet Count 261 X10^3/uL (150-400)
[2025-07-14 18:36] LABS: Alanine Aminotransferase 40 IU/L (<35); Albumin 4.3 g/dL (3.5-5.0); Albumin Globulin Ratio 1.9 (1.0-2.8); Alkaline Phosphatase 175 U/L (38-126); Blood Urea Nitrogen 10 mg/dL (7-17); Calcium 10.5 mg/dL (8.4-10.2); Carbon Dioxide 30 mmol/L (22-32); Chloride 107 mmol/L (98-107); Estimated Glomerular Filt Rate > 60 mL/min (>60); Globulin 2.3 g/dL (1.7-4.1); Glucose 91 mg/dL (70-99); HEMOLYSIS < 15 (0-50); Potassium 5.0 mmol/L (3.4-5.1); Sodium 142 mmol/L (137-145); Total Protein 6.6 g/dL (6.3-8.2)
== END ==
LOC: LAB 16:40
PROVIDERS: PCP Internal Medicine; Referring Provider Internal Medicine; Visit Provider Internal Medicine
DX: G71.11 Myotonic muscular dystrophy (principal)
CPT/HCPCS: 36415; 80053; 85025